=== PATIENT | male | born 1970 | race Caucasian/White ===

== ENCOUNTER → 2016-10-06 | Outpatient (REF) | payer OTHER ==
[~2016-10-06] MED LIST: /MOXI40TA; BACT800T; COMBIVIR OR; FIOR1CAP PO; IMIT50TA PO; KAYEXALATE; KEFL500C7 PO; NYSTATIN ORAL; PRED20TA; PROV90AE; SENN8.6T5; TEGR100C OR; TRAZ100T OR; TRIU1TAB PO; [UNRECOGNIZED DRUG - CODE] OR
[2016-10-09 00:08] LABS: %CD3+CD4+CD8+ 1.9 % (Not Estab.); %CD3+CD4+CD8- 34.8 % (Not Estab.); %CD3+CD4-CD8+ 33.9 % (Not Estab.); %CD3+CD4-CD8- 2.7 % (Not Estab.); ABS CD3+CD4+CD8+ 44 /uL (Not Estab.); ABS CD3+CD4+CD8- 800 /uL (Not Estab.); ABS CD3+CD4-CD8+ 780 /uL (Not Estab.); ABS CD3+CD4-CD8- 62 /uL (Not Estab.); CD4/CD8 NYSDOH RATIO 1.03 (Not Estab.); Eosinophils 2 % (.); HCT 50.4 % (37.5-51.0); HGB 17.3 g/dL (12.6-17.7); Monocytes 9 % (.); Neutrophils 61 % (.); WBC 8.2 x10E3/uL (3.4-10.8)
== END ==
LOC: M SFHCPLAZ 11:01
PROVIDERS: ATTEND Internal Medicine Infectious Disease
DX: B20 Human immunodeficiency virus [HIV] disease (principal)

== ENCOUNTER → 2016-10-28 | Outpatient (CLI) | payer OTHER ==
--- NOTE | 2016-11-06 00:36 | ECWPNPC ---
PATIENT NAME: NKECHI MCADAMS : 1970 GENDER: MALE VISIT DATE: 10/28/2016 DISCHARGE DATE: 10/28/16 1448 VISIT LOCKED DATE TIME: PHYSICIAN: NAA CARO RESOURCE: ANA CARO REASON FOR APPOINTMENT 1. NECK/BACK HISTORY OF PRESENT ILLNESS GENERAL: 46 Y/O MALE REFERED BY DR. 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 MARTINS.USING TRAMADOL 50MG 1-2 TAB UP TO 6 TABLETS PER DAY AND THIS IS NOT HELPFUL.USING FLEXERIL 10MG AM AND PM WITHOUT IMPROVEMENT.USING GABAPENTIN 300MG AM AND PM FOR TWO WEEKS WITHOUT IMPROVEMENT.PAIN IS AGGREVATED BY HEAVY LIFTING OR TWISTING. NEW PATIENT CONSULT: WHEN DID YOUR PAIN FIRST START? . BRIEFLY DESCRIBE HOW YOUR PAIN STARTED? . HOW DOES YOUR PAIN CHANGE WITH TIME? . DOES YOUR PAIN AWAKEN YOU FROM SLEEP? . HOW MANY HOURS OF SLEEP DO YOU NORMALLY GET? . ANY DIAGNOSTIC TESTING? . FACILITY WHERE TESTS WERE DONE? ____. PAIN TREATMENT TREATMENT YES CANCER HAVE YOU EVER HAD ANY TYPE OF CANCER?NO NO. PAIN SCREENING: PATIENT HAS A COMPLAINT OF ACUTE OR CHRONIC PAIN YES FALL RISK SCREENING: SCREENING :NO FALLS IN THE PAST YEAR LEMUS INVENTORY: QUESTIONNAIRE ASSESSEDTBD SCORE VALUE CALCULATED TBD CURRENT MEDICATIONS TAKING LIPITOR 40 MG TABLET 1 TABLET ORALLY ONCE A DAY TAKING MULTIVITAL HOOPA 1 TABLET DIRECTED ORALLY DAILY TAKING ALBUTEROL 90 MCG/ACT AEROSOL SOLUTION 2 PUFF INHALATION QID/PRN SOB OR WHEEZING TAKING GABAPENTIN 300 MG CAPSULE 1 CAPSULE ORALLY THREE TIMES A DAY TAKING CYCLOBENZAPRINE HCL 10 MG TABLET 1 TABLET ORALLY BID PRN TAKING TRIUMEQ 1 TABLET DIRECTED ORALLY DAILY TAKING TRAZODONE 150 150MG TABLET 2 TAB(S) ORALLY BEFORE BEDTIME TAKING TRAMADOL HCL 50 MG TABLET 2 TABLET NEEDED ORALLY BID NOT-TAKING SUMATRIPTAN SUCCINATE 100 MG TABLET 1/2-1 TABLET NEEDED ONE TIME ORALLY ONCE A DAY MEDICATION LIST REVIEWED AND RECONCILED WITH THE PATIENT PAST MEDICAL HISTORY AIDS GENOTYPE SENSITIVE 10/2009 CHRONIC KIDNEY DISEASE STAGE [address] ANN INSOMNIA PTSD PNEUMOCYSTIS PNEUMONIA DENTAL CAVITIES MRI 12/04/2011 DDD BULGE L4-5 L5-S1 07/2012 EXCISION OF SCC CA LEFT GROIN LESION HLAB 5701 NEGATIVE 2011 SLEEP [facility] CANNOT TOLERATE MASK MILD HEARING LOSS [facility]UDIOLOGY CENTER FOR SIGHT ASTIGMATISM/GLAUCOMA SUSPECT DR JULIAN CHRONIC MIGRAINE WITHOUT AURA, WITHOUT MENTION OF INTRACTABLE MIGRAINE WITH STATUS MIGRAINOSUS LEFT INDEX FINGER CUT 05/2015 ALLERGIES N.K.D.A. SURGICAL HISTORY HERNIA REPAIR 1981 TEETH EXTRACTED FAMILY HISTORY FATHER: 57 YRS, KIDNEY DISEASE CHF KIDNEY DISEASE CHF MOTHER: ALIVE SIBLINGS: ALIVE, 2 SISTERS 2 SISTERS SON(S): ALIVE, 3 SONS 3 SONS PATERNAL GRAND FATHER: , CHF CHF PATERNAL GRAND MOTHER: MATERNAL GRAND FATHER: , CHF CHF MATERNAL GRAND MOTHER: 1 SON(S) - HEALTHY. . SOCIAL HISTORY GENERAL: TOBACCO USE ARE YOU A:NONSMOKER ARE YOU A:CURRENT SMOKER HOW MANY CIGARETTES A DAY DO YOU SMOKE?11-20 HOW SOON AFTER YOU WAKE UP DO YOU SMOKE YOUR FIRST CIGARETTE?31-60 MIN HOW OFTEN DO YOU SMOKE CIGARETTES?EVERY DAY PATIENT COUNSELED ON THE DANGERS OF TOBACCO USE AND URGED TO QUIT:10/06/2016 ARE YOU INTERESTED IN QUITTING?NOT READY TO QUIT COUNSELED THE PATIENT ON SMOKING EFFECTS, EDUCATION [id number]/16/2017 SMOKING CESSATION INFORMATION GIVEN10/06/2016 PAIN CLINIC PFS, CLERGY, PUBLIC HEALTH REFERRALS CLERGY REFERRAL NEEDED?NO WAS THE PROVIDER NOTIFIED OF ANY PERTINENT INFO?NO PFS REFERRAL NEEDED?NO PUBLIC HEALTH REFERRAL NEEDED?NO PSYCHOLOGICAL HX TREATMENTNO ALCOHOL OR DRUG TREATMENTNO PATIENT: ____. ADVANCED DIRECTIVES HEALTH CARE PROXY?NO POWER OF WEIGHER PRODUCTION?NO SCREENING/ASSESSMENT TOOL NUTRITION ASSESSEDYES ARE YOU ON ANY SPECIAL DIET?NO ANY SIGNIFICANT CHANGES RELATED TO EATING, WEIGHT GAIN/LOSS, OR BOWEL HABITS?NO IF YES, IS YOUR PRIMARY CARE PROVIDER AWARE OF THIS?NO SPECIAL NEEDS LEVEL OF CARE? SELF, GLASSES: NO, CONTACTS: NO, HEARING AIDS: NO, DENTURES: NO, WALKER: NO, CANE: NO, WHEELCHAIR: NO, REFERRALS NEEDED: NO. 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 DIET: REGULAR. EXERCISE: RESISTANCE TRAINING. MARITAL STATUS: .. OTHERS AT HOME: CHILDREN,, OTHER NON-RELATIVE. PETS: DOG. ORTHODOXY: NO RESTORATIONISM BELIEFS THAT WOULD IMPACT HEALTH CARE. LANGUAGE: LAO. EDUCATION: HIGH SCHOOL GRAD. LEARNING BARRIERS / SPECIAL NEEDS BARRIERS TO LEARNING?NO HEARING IMPAIRED?NO VISION IMPAIRED?NO COGNITIVELY IMPAIRED?NO READINESS TO LEARN?YES LEARNING PREFERENCES?NO LEARNING CAPABILITIES PRESENT?YES EMOTIONAL BARRIERS?NO MALE 6 MONTH RISK ASSESSMENT FOR STD DESCRIBE YOUR SEXUAL PARTNERS:WOMEN MONOGOMOUS?YES HIV POSITIVE?YES EVER INJECT DRUGS?NO VAGINAL SEX?YES WITH CONDOMS?SOMETIMES ANAL SEX?NO ORAL SEX?NO WHAT STEPS HAVE YOU TAKEN TO PROTECT YOURSELF FROM STDS, INCLUDING HIV? (CHECK ALL THAT APPLY):MUTUAL MONOGAMY, MALE CONDOMS HAVE YOU OR ANY OF YOUR SEXUAL PARTNERS EVER HAD AN STD? IF YES PLEASE LIST:NO IS THERE ANYTHING ELSE WE SHOULD TALK ABOUT CONCERNING YOUR SEXUAL HISTORY OR PRACTICE?NO HOUSING: OWNS HOME. HOSPITALIZATION/MAJOR DIAGNOSTIC PROCEDURE HERNIA REPAIR AT [facility] 1981 PNEUMONIA AT [facility] 2009 URNS 14 5 RIGHT SIDE 2015 REVIEW OF SYSTEMS CONSTITUTIONAL: RECENT ILLNESS DENIES . ANY CHANGE IN YOUR MEDICAL CONDITION? NO . CHILLS NO . FEVER NO, DENIES . WEIGHT LOSS DENIES . INFECTION: DO YOU HAVE NEW INFECTIONS? NO . DO YOU HAVE HISTORY OF MRSA? NO . MUSCULOSKELETAL: ANY NEW PATTERNS OF PAIN OR NUMBNESS? NO . SYTEMIC LUPUS NO . JOINT PAIN DENIES . JOINT STIFFNESS DENIES . GASTROENTEROLOGY: BOWEL INCONTINENCE DENIES . ANY NEW CHANGE IN BOWEL CONTROL? NO . BARRETTS ESOPHAGUS NO . CIRRHOSIS NO . HEPATITIS NO . LIVER FAILURE NO . ACID REFLUX NO . BLOOD IN STOOL DENIES . UNEXPLAINED WEIGHT LOSS NO . GENITOURINARY: ANY NEW CHANGE IN BLADDER CONTROL? NO . IS THERE A CHANCE YOU COULD BE ? NO . HEMATOLOGY/LYMPH: DENIES . BLEEDING DISORDER DENIES . DO YOU TAKE ANY BLOOD THINNERS? (FOR EXAMPLE- COUMADIN, PLAVIX, AGGRENOX, PLATEL, PRADAXA, OR XARELTO) NO . WHEN WAS YOUR LAST DOSE? DATE: TIME: . LOW PLATELET COUNT NO . SICKLE CELL DISEASE NO . VON WILLIEBRANDS NO . FACTOR V LEIDEN NO . THALLASEMIA NO . ANEMIA NO . EASY BRUISING NO . NEUROLOGY: HAVE YOU FALLEN IN THE PAST 6 MONTHS? NO . ANY NEW EXTREMITY NUMBNESS OR WEAKNESS? NO . HEAD INJURY NO . DEMENTIA NO . CEREBRAL PALSY NO . MULTIPLE SCLEROSIS NO . DIZZINESS NO . HEADACHE NO, DENIES . SEIZURES DENIES . STROKES NO . VERTIGO NO . CARDIOLOGY: DO YOU HAVE A PACEMAKER OR DEFIBRILLATOR? NO . ANGINA NO . HEART ATTACK NO . HEART SURGERY NO . CONGESTIVE HEART FAILURE/FLUID OVERLOAD NO . CHEST PAIN NO, DENIES . HIGH BLOOD PRESSURE NO . IRREGULAR HEART BEAT NO . SHORTNESS OF BREATH DENIES . RESPIRATORY: HAVE YOU BEEN SICK IN THE PAST WEEK? NO . FEVER NO . FLU LIKE SYMPTOMS? NO . CPAP NO . BYPAP NO . ASTHMA NO . EMPHYSEMA NO . CHRONIC LUNG DISEASES NO . SHORTNESS OF BREATH ON EXERTION NO . DO YOU USE ANY TYPE OF TOBACCO (SMOKE, SMOKELESS, CHEW)? NO . COUGH NO, DENIES . SHORTNESS OF BREATH DENIES . SNORING NO . INTEGUMENTARY: DO YOU HAVE ANY RASHES OR OPEN SORES? NO . ALLERGIC/IMMUNO: ARE YOU ALLERGIC TO SHELLFISH OR IV DYE? NO . ANY NEW ALLERGIES? NO . PSYCHIATRIC: DO YOU HAVE THOUGHTS OF HURTING YOURSELF OR SOMEONE ELSE? NO . ARE YOU ABUSED, NEGLECTED, OR IN AN UNSAFE ENVIRONMENT? NO . ENDOCRINOLOGY: THYROID DISEASE DENIES . ARE YOU DIABETIC? NO . DIABETES DENIES . THYROID DISORDER NO . OTHER: DO YOU NEED ANY PRESCRIPTIONS? NO . IF YES, PLEASE LIST: ____ . ANY NEW PROBLEMS WITH YOUR MEDICATIONS? NO . WHEN DID YOU LAST EAT? ____ . WHEN DID YOU LAST DRINK? ____ . WHAT DID YOU LAST DRINK? ____ . NAME OF PERSON DRIVING YOU HOME? ____ . DO YOU HAVE ANY OTHER QUESTIONS OR CONCERNS NO . HEENT: CHANGE IN VISION DENIES . LOSS OF HEARING DENIES . TROUBLE SWALLOWING DENIES . PSYCHOLOGY: ANXIETY DENIES . DEPRESSION DENIES . UROLOGY: URINARY INCONTINENCE DENIES . BLOOD IN URINE DENIES . REVIEWED BY: PROVIDER: ANA KANG . VITAL SIGNS WT 174.2 LBS, HT 68 IN, BMI 26.48 INDEX, BP 130/80 MM HG, HR 77 /MIN, RR 16 /MIN, TEMP 97.3 F, OXYGEN SAT % 98, NA INITIALS TL 1321, REVIEWED BY: KG. EXAMINATION GENERAL EXAMINATION: HEENT:HEAD:, NORMOCEPHALIC, EYES:, EYES NORMAL, NOSE:, NOSE CLEAR, THROAT: NORMAL. LUNGS:LUNG SOUNDS ARE CLEAR. HEART:HEART RATE REGULAR. ABDOMEN:SOFT AND NOT TENDER, NON-DISTENDED. MUSCULOSKELETAL:*. LUMBAR SACRAL SPINEMUSCLE STRENGTH TESTING 5/5 BILATERAL LOWER EXTREMITIES. PALPATION: + FOR PAIN OVER L/S SPINE. + FOR PAIN OVER L/S PARASPINALS.HYPERSENSITIVE TO LIGHT TOUCH OVER LUMBAR PARASPINALS AND THORACIC PARASPINALS., TRIGGER POINTS:NOTED BILATERAL LUMBAR PARASPINALS.. THORACIC SPINENEGATIVE FOR PAIN WITH PALPATION OF THORACIC SPINE. NEGATIVE FOR PAIN WITH PALPATION OF THORACIC PARASPINAL. CERVICALNEGATIVE FOR PAIN WITH PALPATION OF CERVICAL SPINE. NEGATIVE FOR PAIN WITH PALPATION OF CERVICAL PARASPINALS. NEGATIVE FOR PAIN WITH PALPATION OF TRAPEZIUS BILAT. SKIN:NORMAL, NO RASH. NEUROLOGIC EXAM:ALERT AND ORIENTED X 3, DTRS 1-2+ IN ALL 4 EXTREMITIES, DENIES UPPER EXTREMETIES SENSORY LOSS, DENIES LOWER EXTREMETIES SENSORY LOSS. DIAGNOSTIC:MRI L/S [id number]. 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 PREVENTIVE MEDICINE PAIN CLINIC TEACHING: MEDICATIONS SOMA EDUCATION PROVIDED/ PT INSTRUCTED TO STOP FLEXERIL. PROCEDURE TEACHING WENT OVER PROCEDURE INSTRUCTIONS WITH PT AND GIRLFRIEND.. PROCEDURE CODES FA211 ESTABILISHED PATIENT [facility] CHARGE DISPOSITION & COMMUNICATION FOLLOW UP 2 WEEKS POST PROC. (REASON: TPI LOW BACK) ELECTRONICALLY SIGNED BY PEARL ACEVEDO ON 11/04/2016 AT 04:57 PM EST DISCLAIMER : THIS IS A VISIT SUMMARY EXTRACTED FROM THE [employer] CHART. IT IS NOT A COPY OF THE [employer] PROGRESS NOTE. VIMALD
== END ==
LOC: M PAIN 13:20
PROVIDERS: ATTEND Nurse Practitioner Family
DX: M79.1 Myalgia (principal); M47.896 Other spondylosis, lumbar region; M54.6 Pain in thoracic spine; M50.30 Other cervical disc degeneration, unspecified cervical region; M54.5 Low back pain; G89.29 Other chronic pain; Z79.891 Long term (current) use of opiate analgesic; Z79.899 Other long term (current) drug therapy; F43.10 Post-traumatic stress disorder, unspecified; N18.3 Chronic kidney disease, stage 3 (moderate); F17.210 Nicotine dependence, cigarettes, uncomplicated

== ENCOUNTER → 2016-11-04 | Outpatient (CLI) | payer OTHER ==
[~2016-11-04] MED LIST changes: +BUPIVACAINE HCL 0.25% 10 ML VIAL As Ordered ONE; +BUPIVACAINE HCL 0.25% 30 ML VIAL As Ordered ONE; +TRIAMCINOLONE ACETONIDE SUSP 40 MG/ML VIAL (J3301) As Ordered ONE; +diazePAM 5 MG TAB As Ordered ONE; +oxyCODONE 5MG TAB As Ordered ONE
--- NOTE | 2016-11-08 23:25 | ECWPNPC ---
PATIENT NAME: NKECHI MCADAMS : 1970 GENDER: MALE VISIT DATE: 11/04/2016 DISCHARGE DATE: 11/04/16 1107 VISIT LOCKED DATE TIME: PHYSICIAN: PUJA CHILDRESS RESOURCE: PUJA CHILDRESS REASON FOR APPOINTMENT 1. TRIGGER POINT INJECTION HISTORY OF PRESENT ILLNESS HISTORY OF PRESENT ILLNESS: PAIN THE PATIENT DESCRIBES THE PAIN... FALL RISK SCREENING: SCREENING :NO FALLS IN THE PAST YEAR CURRENT MEDICATIONS TAKING LIPITOR 40 MG TABLET 1 TABLET ORALLY ONCE A DAY, NOTES: 11/04/16729 TAKING MULTIVITAL HO-CHUNK 1 TABLET DIRECTED ORALLY DAILY, NOTES: 11/04/16729 TAKING ALBUTEROL 90 MCG/ACT AEROSOL SOLUTION 2 PUFF INHALATION QID/PRN SOB OR WHEEZING, NOTES: 3 WEEKS AGO TAKING TRIUMEQ 1 TABLET DIRECTED ORALLY DAILY, NOTES: 11/04/16729 TAKING TRAZODONE 150 150MG TABLET 1TAB(S) ORALLY BID, NOTES: 11/04/16729 TAKING SOMA 350 MG TABLET 1 TABLET NEEDED ORALLY Q8H MDD3, NOTES: HASN'T GOTTEN PREAPPROVAL YET TAKING GABAPENTIN 300 MG CAPSULE 1 CAPSULE ORALLY THREE TIMES A DAY, NOTES: 11/04/16729 TAKING TRAMADOL HCL 50 MG TABLET 2 TABLET NEEDED ORALLY BID, NOTES: 11/03/16 230 TAKING CYCLOBENZAPRINE HCL 10 MG TABLET 1 TABLET ORALLY BID PRN, NOTES: 11/04/16729 NOT-TAKING SUMATRIPTAN SUCCINATE 100 MG TABLET 1/2-1 TABLET NEEDED ONE TIME ORALLY ONCE A DAY MEDICATION LIST REVIEWED AND RECONCILED WITH THE PATIENT PAST MEDICAL HISTORY AIDS GENOTYPE SENSITIVE 10/2009 CHRONIC KIDNEY DISEASE STAGE [address] ANN INSOMNIA PTSD PNEUMOCYSTIS PNEUMONIA DENTAL CAVITIES MRI 12/04/2011 DDD BULGE L4-5 L5-S1 07/2012 EXCISION OF SCC CA LEFT GROIN LESION HLAB 5701 NEGATIVE 2011 SLEEP [facility] CANNOT TOLERATE MASK MILD HEARING LOSS AUDIOLOGY CENTER FOR SIGHT ASTIGMATISM/GLAUCOMA SUSPECT DR JULIAN CHRONIC MIGRAINE WITHOUT AURA, WITHOUT MENTION OF INTRACTABLE MIGRAINE WITH STATUS MIGRAINOSUS LEFT INDEX FINGER CUT 05/2015 ALLERGIES N.K.D.A. SOCIAL HISTORY GENERAL: TOBACCO USE ARE YOU A:CURRENT SMOKER HOW MANY CIGARETTES A DAY DO YOU SMOKE?11-20 HOW SOON AFTER YOU WAKE UP DO YOU SMOKE YOUR FIRST CIGARETTE?WITHIN 5 MIN PATIENT COUNSELED ON THE DANGERS OF TOBACCO USE AND URGED TO QUIT: COUNCELED ON THE IMPORTANCE OF QUITTING. ARE YOU INTERESTED IN QUITTING?NOT READY TO QUIT ADDITIONAL FINDINGS: TOBACCO USERCHEWS TOBACCO LEARNING BARRIERS / SPECIAL NEEDS ORIENTED TO PLAN OF CARE: PATIENT, PAIN MANAGEMENT PATIENT, ORIENTED TO PLAN OF CARE: PATIENT, PAIN MANAGEMENT PATIENT. NEW PATIENT PAIN DIARY TODAY'S VISITNOTES FROM 0-10, WHAT LEVEL IS YOUR PAIN TODAY?0 PAIN CLINIC PFS, CLERGY, PUBLIC HEALTH REFERRALS PFS REFERRAL NEEDED?NO CLERGY REFERRAL NEEDED?NO PUBLIC HEALTH REFERRAL NEEDED?NO WAS THE PROVIDER NOTIFIED OF ANY PERTINENT INFO?NO PFS REFERRAL NEEDED?NO CLERGY REFERRAL NEEDED?NO PUBLIC HEALTH REFERRAL NEEDED?NO WAS THE PROVIDER NOTIFIED OF ANY PERTINENT INFO?NO REVIEW OF SYSTEMS CONSTITUTIONAL: ANY CHANGE IN YOUR MEDICAL CONDITION? NO . CHILLS NO . FEVER NO . INFECTION: DO YOU HAVE NEW INFECTIONS? NO . DO YOU HAVE HISTORY OF MRSA? NO . MUSCULOSKELETAL: ANY NEW PATTERNS OF PAIN OR NUMBNESS? NO . GASTROENTEROLOGY: ANY NEW CHANGE IN BOWEL CONTROL? NO . GENITOURINARY: ANY NEW CHANGE IN BLADDER CONTROL? NO . IS THERE A CHANCE YOU COULD BE ? NO . HEMATOLOGY/LYMPH: DO YOU TAKE ANY BLOOD THINNERS? (FOR EXAMPLE- COUMADIN, PLAVIX, AGGRENOX, PLATEL, PRADAXA, OR XARELTO) NO . WHEN WAS YOUR LAST DOSE? DATE: TIME: . NEUROLOGY: HAVE YOU FALLEN IN THE PAST 6 MONTHS? YES, EARLY MAY.- REAGGREVATED HIS BACK . ANY NEW EXTREMITY NUMBNESS OR WEAKNESS? NO . CARDIOLOGY: DO YOU HAVE A PACEMAKER OR DEFIBRILLATOR? NO . RESPIRATORY: HAVE YOU BEEN SICK IN THE PAST WEEK? NO . FEVER NO . FLU LIKE SYMPTOMS? NO . COUGH NO . INTEGUMENTARY: DO YOU HAVE ANY RASHES OR OPEN SORES? NO . ALLERGIC/IMMUNO: ARE YOU ALLERGIC TO SHELLFISH OR IV DYE? NO . ANY NEW ALLERGIES? NO . PSYCHIATRIC: DO YOU HAVE THOUGHTS OF HURTING YOURSELF OR SOMEONE ELSE? YES, RECEIVING COUNCELING AT [facility] FOR PTSD AND PSYCH DISORDERS . ARE YOU ABUSED, NEGLECTED, OR IN AN UNSAFE ENVIRONMENT? NO . ENDOCRINOLOGY: ARE YOU DIABETIC? NO . OTHER: DO YOU NEED ANY PRESCRIPTIONS? NO . IF YES, PLEASE LIST: ____ . ANY NEW PROBLEMS WITH YOUR MEDICATIONS? NO . WHEN DID YOU LAST EAT? ____11/03/16 1700 . WHEN DID YOU LAST DRINK? ____11/04/16 0745 . WHAT DID YOU LAST DRINK? SWEETENED ICE TEA . NAME OF PERSON DRIVING YOU HOME? ____BLANCACULLEN . DO YOU HAVE ANY OTHER QUESTIONS OR CONCERNS YES WAITING FOR APPROVAL FOR SOMA . REVIEWED BY: PROVIDER: . VITAL SIGNS WT 176.4 LBS, HT 68 IN, BMI 26.82 INDEX, BP 132/84 MM HG, HR 97 /MIN, RR 16 /MIN, TEMP 96.8 F, OXYGEN SAT % 98, REVIEWED BY: AD. ASSESSMENTS MYALGIA - M79.1 (PRIMARY) PROCEDURES PN TRIGGER POINT INJECTION WITH STEROIDS PRE PROCEDURE DIAGNOSIS 1. MYALGIA 2. PAIN AT BILATERAL LOWER BACK AREA POST PROCEDURE DIAGNOSIS 1. MYALGIA 2. PAIN AT BILATERAL LOWER BACK AREA PROCEDURE TRIGGER POINT INJECTION AT BILATERAL LOWER BACK AREA SURGEON DR. PUJA CHILDRESS FOCUS PULLER NONE ANESTHESIA LOCAL PRE PROCEDURE NOTE THE PATIENT HAS A HISTORY OF CHRONIC PAIN AT THE RIGHT AND LEFT LOW BACK AREA. I EVALUATE THE PATIENT AND REVIEWED THE CHART. THERE IS EVIDENCE OF BANDS OF TISSUE WITH RESTRICTION OF MOVEMENT AND PRESENCE OF TRIGGER POINT AT THE AFFECTED AREA. I WENT OVER THE RISKS, ALTERNATIVES, AND BENEFITS ASSOCIATED WITH THIS PROCEDURE. THE PATIENT WOULD LIKE TO PROCEED AND GIVE CONSENT TO PERFORMED THE PROCEDURE. THE PATIENT DENIES UNEXPLAINABLE WEIGHT LOSS, FEVER, CHILLS, OR NEW CHANGES IN URINARY OR BOWEL CONTROL DESCRIPTION OF PROCEDURE THE PATIENT WAS BROUGHT TO THE PROCEDURE ROOM AND PLACED IN THE SITTING POSITION. THE AREA WAS CLEANED WITH ALCOHOL. THE PROCEDURE WAS DONE USING ASEPTIC STERILE TECHNIQUE. I CHECKED LATERALITY AND THE LEVEL WHERE THE PROCEDURE WAS GOING TO BE PERFORMED WITH THE PATIENT AND THE SUPPORTING STAFF AT THE MOMENT OF THE TIME OUT IN THE PROCEDURE ROOM. USING A 25-GAUGE NEEDLE, TRIGGER POINTS WERE INJECTED AT THE RIGHT AND LEFT LOW BACK AREA WITH A TOTAL OF 40 ML OF BUPIVACAINE 0.25% AND KENALOG 40 MG. THERE WAS NO EVIDENCE OF BLOOD, PARESTHESIA OR CEREBROSPINAL FLUID DURING THE PROCEDURE. THE PATIENT WAS SENT TO THE RECOVERY ROOM. THE PATIENT WAS MOVING THE EXTREMITIES AND DOING WELL. THERE WAS NO COMPLICATION DURING THE PROCEDURE POST PROCEDURE NOTE THE PATIENT WILL BE SEEN IN A FOLLOW UP IN THE NEXT FEW WEEKS. INSTRUCTIONS WERE GIVEN, QUESTIONS WERE ANSWERED, AND THE PATIENT EXPRESSED UNDERSTANDING AND AGREES WITH THE PLAN. INSTRUCTIONS WERE GIVEN, QUESTIONS WERE ANSWERED, PATIENT REPORTS UNDERSTANDING AND AGREES WITH THE PLAN. I, SPENSER SOLER, DOCUMENTED THE ABOVE INFORMATION ACTING A SCRIBE FOR DR. CHILDRESS. I HAVE REVIEWED THE ABOVE DOCUMENT, WRITTEN BY SPENSER SOLER SCRIBE AND I VERIFY THAT IT IS ACCURATE. PROCEDURE CODES 06345 INJ TRIGGER POINT / MUSCL DISPOSITION & COMMUNICATION FOLLOW UP 3 WEEKS ELECTRONICALLY SIGNED BY PUJA CHILDRESS MD ON 11/08/2016 AT 09:18 PM EST DISCLAIMER : THIS IS A VISIT SUMMARY EXTRACTED FROM THE [employer] CHART. IT IS NOT A COPY OF THE [employer] PROGRESS NOTE. HAETHER
== END ==
LOC: M PAIN 09:00
PROVIDERS: ATTEND Anesthesiology
DX: G89.29 Other chronic pain (principal); M54.5 Low back pain; M51.36 Other intervertebral disc degeneration, lumbar region; B20 Human immunodeficiency virus [HIV] disease; N18.3 Chronic kidney disease, stage 3 (moderate); F43.10 Post-traumatic stress disorder, unspecified; M50.30 Other cervical disc degeneration, unspecified cervical region; E78.1 Pure hyperglyceridemia; G43.119 Migraine with aura, intractable, without status migrainosus; I95.1 Orthostatic hypotension; Z79.899 Other long term (current) drug therapy; Z79.891 Long term (current) use of opiate analgesic; F17.210 Nicotine dependence, cigarettes, uncomplicated
CPT/HCPCS: 20552; J3301

== ENCOUNTER → 2016-11-25 | Outpatient (CLI) | payer OTHER ==
[~2016-11-25] MED LIST changes: -BUPIVACAINE HCL 0.25% 10 ML VIAL As Ordered ONE; -BUPIVACAINE HCL 0.25% 30 ML VIAL As Ordered ONE; -TRIAMCINOLONE ACETONIDE SUSP 40 MG/ML VIAL (J3301) As Ordered ONE; -diazePAM 5 MG TAB As Ordered ONE; -oxyCODONE 5MG TAB As Ordered ONE
--- NOTE | 2016-11-27 00:17 | ECWPNPC ---
PATIENT NAME: NKECHI MCADAMS : 1970 GENDER: MALE VISIT DATE: 11/25/2016 DISCHARGE DATE: 11/25/16 1041 VISIT LOCKED DATE TIME: PHYSICIAN: ANA CARO RESOURCE: ANA CARO REASON FOR APPOINTMENT 1. POST TPI INJ HISTORY OF PRESENT ILLNESS HISTORY OF PRESENT ILLNESS: HERE FOR POST PROCEDURE F/U.HAD TPI ON 11-04-16 TO LOW BACK.REPORTS NO IMPROVEMENT IN PAIN POST PROCEDURE.RATING PAIN VAS 8/10.DENIES RADICULAR SYMPTOMS.REPORTS CURRENT MEDICATION INEFFECTIVE AT REDUCING PAIN.ADMITS TO SMOKING MARIJUANA WHICH HELPS TO REDUCE PAIN.HE IS CONSIDERING REFERRAL FOR MARIJUANA/MEDICAL. PAIN THE PATIENT DESCRIBES THE PAIN... FALL RISK SCREENING: SCREENING :NO FALLS IN THE PAST YEAR CURRENT MEDICATIONS TAKING LIPITOR 40 MG TABLET 1 TABLET ORALLY ONCE A DAY, NOTES: 11/04/16729 TAKING MULTIVITAL [place] 1 TABLET DIRECTED ORALLY DAILY, NOTES: 11/04/16729 TAKING ALBUTEROL 90 MCG/ACT AEROSOL SOLUTION 2 PUFF INHALATION QID/PRN SOB OR WHEEZING, NOTES: 3 WEEKS AGO TAKING TRIUMEQ 1 TABLET DIRECTED ORALLY DAILY, NOTES: 11/04/16729 TAKING TRAZODONE 150 150MG TABLET 1TAB(S) ORALLY BID, NOTES: 11/04/16729 TAKING TRAMADOL HCL 50 MG TABLET 2 TABLET NEEDED ORALLY BID, NOTES: 11/03/16 230 TAKING GABAPENTIN 300 MG CAPSULE 1 CAPSULE ORALLY THREE TIMES A DAY, NOTES: 11/04/16729 TAKING CYCLOBENZAPRINE HCL 10 MG TABLET 1 TABLET ORALLY BID PRN, NOTES: 11/04/16729 TAKING SOMA 350 MG TABLET 1 TABLET NEEDED ORALLY THREE TIMES DAILY TAKING TIZANIDINE HCL 4 MG TABLET 1 TABLET NEEDED ORALLY THREE TIMES A DAY NOT-TAKING SOMA 350 MG TABLET 1 TABLET NEEDED ORALLY Q8H MDD3, NOTES: HASN'T GOTTEN PREAPPROVAL YET NOT-TAKING SUMATRIPTAN SUCCINATE 100 MG TABLET 1/2-1 TABLET NEEDED ONE TIME ORALLY ONCE A DAY MEDICATION LIST REVIEWED AND RECONCILED WITH THE PATIENT PAST MEDICAL HISTORY AIDS GENOTYPE SENSITIVE 10/2009 CHRONIC KIDNEY DISEASE STAGE [address] ANN INSOMNIA PTSD PNEUMOCYSTIS PNEUMONIA DENTAL CAVITIES MRI 12/04/2011 DDD BULGE L4-5 L5-S1 07/2012 EXCISION OF SCC CA LEFT GROIN LESION HLAB 5701 NEGATIVE 2011 SLEEP APNEA CANNOT TOLERATE MASK MILD [facility]/GLAUCOMA SUSPECT DR JULIAN CHRONIC MIGRAINE WITHOUT AURA, WITHOUT MENTION OF INTRACTABLE MIGRAINE WITH STATUS MIGRAINOSUS LEFT INDEX FINGER CUT 05/2015 ALLERGIES N.K.D.A. SOCIAL HISTORY GENERAL: TOBACCO USE ARE YOU A:NONSMOKER ARE YOU A:CURRENT SMOKER PATIENT COUNSELED ON THE DANGERS OF TOBACCO USE AND URGED TO QUIT:11/25/2016 ARE YOU INTERESTED IN QUITTING?NOT READY TO QUIT COUNSELED THE PATIENT ON SMOKING EFFECTS, EDUCATION [id number]/07/2017 LEARNING BARRIERS / SPECIAL NEEDS ORIENTED TO PLAN OF CARE: PATIENT, PAIN MANAGEMENT PATIENT, ORIENTED TO PLAN OF CARE: PATIENT, PAIN MANAGEMENT PATIENT, ORIENTED TO PLAN OF CARE: PATIENT, PAIN MANAGEMENT PATIENT. NEW PATIENT PAIN DIARY TODAY'S VISITNOTES FROM 0-10, WHAT LEVEL IS YOUR PAIN TODAY?0 PAIN CLINIC PFS, CLERGY, PUBLIC HEALTH REFERRALS PFS REFERRAL NEEDED?NO CLERGY REFERRAL NEEDED?NO PUBLIC HEALTH REFERRAL NEEDED?NO WAS THE PROVIDER NOTIFIED OF ANY PERTINENT INFO?NO PFS REFERRAL NEEDED?NO CLERGY REFERRAL NEEDED?NO PUBLIC HEALTH REFERRAL NEEDED?NO WAS THE PROVIDER NOTIFIED OF ANY PERTINENT INFO?NO PFS REFERRAL NEEDED?NO CLERGY REFERRAL NEEDED?NO PUBLIC HEALTH REFERRAL NEEDED?NO WAS THE PROVIDER NOTIFIED OF ANY PERTINENT INFO?NO REVIEW OF SYSTEMS CONSTITUTIONAL: ANY CHANGE IN YOUR MEDICAL CONDITION? NO . CHILLS NO . FEVER NO . INFECTION: DO YOU HAVE NEW INFECTIONS? NO . DO YOU HAVE HISTORY OF MRSA? NO . MUSCULOSKELETAL: ANY NEW PATTERNS OF PAIN OR NUMBNESS? NO . GASTROENTEROLOGY: ANY NEW CHANGE IN BOWEL CONTROL? NO . GENITOURINARY: ANY NEW CHANGE IN BLADDER CONTROL? NO . IS THERE A CHANCE YOU COULD BE ? NO . HEMATOLOGY/LYMPH: DO YOU TAKE ANY BLOOD THINNERS? (FOR EXAMPLE- COUMADIN, PLAVIX, AGGRENOX, PLATEL, PRADAXA, OR XARELTO) NO . WHEN WAS YOUR LAST DOSE? DATE: TIME: . NEUROLOGY: HAVE YOU FALLEN IN THE PAST 6 MONTHS? NO . ANY NEW EXTREMITY NUMBNESS OR WEAKNESS? NO . CARDIOLOGY: DO YOU HAVE A PACEMAKER OR DEFIBRILLATOR? NO . RESPIRATORY: HAVE YOU BEEN SICK IN THE PAST WEEK? NO . FEVER NO . FLU LIKE SYMPTOMS? NO . COUGH NO . INTEGUMENTARY: DO YOU HAVE ANY RASHES OR OPEN SORES? NO . ALLERGIC/IMMUNO: ARE YOU ALLERGIC TO SHELLFISH OR IV DYE? NO . ANY NEW ALLERGIES? NO . PSYCHIATRIC: DO YOU HAVE THOUGHTS OF HURTING YOURSELF OR SOMEONE ELSE? NO . ARE YOU ABUSED, NEGLECTED, OR IN AN UNSAFE ENVIRONMENT? NO . ENDOCRINOLOGY: ARE YOU DIABETIC? NO . OTHER: DO YOU NEED ANY PRESCRIPTIONS? NO . IF YES, PLEASE LIST: ____ . ANY NEW PROBLEMS WITH YOUR MEDICATIONS? NO . WHEN DID YOU LAST EAT? ____ . WHEN DID YOU LAST DRINK? ____ . WHAT DID YOU LAST DRINK? ____ . NAME OF PERSON DRIVING YOU HOME? ____ . DO YOU HAVE ANY OTHER QUESTIONS OR CONCERNS NO . REVIEWED BY: PROVIDER: ANA KANG . VITAL SIGNS WT 177.0 LBS, HT 68 IN, BMI 26.91 INDEX, BP 152/83 R ARM, REPEAT BP 140/100 L ARM, HR 85 /MIN, RR 16 /MIN, TEMP 96.0 F, OXYGEN SAT % 98, NA INITIALS TL 0957, REVIEWED BY: VD. EXAMINATION GENERAL EXAMINATION: HEENT:HEAD:, NORMOCEPHALIC, EYES:, EYES NORMAL, NOSE:, NOSE CLEAR, THROAT: NORMAL. LUNGS:LUNG SOUNDS ARE CLEAR. HEART:HEART RATE REGULAR. ABDOMEN:SOFT AND NOT TENDER, NON-DISTENDED. MUSCULOSKELETAL:*. LUMBAR SACRAL SPINEMUSCLE STRENGTH TESTING 5/5 BILATERAL LOWER EXTREMITIES. PALPATION: + FOR PAIN OVER L/S SPINE. + FOR PAIN OVER L/S PARASPINALS.HYPERSENSITIVE TO LIGHT TOUCH OVER LUMBAR PARASPINALS AND THORACIC PARASPINALS., TRIGGER POINTS:NOTED BILATERAL LUMBAR PARASPINALS.. THORACIC SPINENEGATIVE FOR PAIN WITH PALPATION OF THORACIC SPINE. NEGATIVE FOR PAIN WITH PALPATION OF THORACIC PARASPINAL. CERVICALNEGATIVE FOR PAIN WITH PALPATION OF CERVICAL SPINE. NEGATIVE FOR PAIN WITH PALPATION OF CERVICAL PARASPINALS. NEGATIVE FOR PAIN WITH PALPATION OF TRAPEZIUS BILAT. SKIN:NORMAL, NO RASH. NEUROLOGIC EXAM:ALERT AND ORIENTED X 3, DTRS 1-2+ IN ALL 4 EXTREMITIES, DENIES UPPER EXTREMETIES SENSORY LOSS, DENIES LOWER EXTREMETIES SENSORY LOSS. DIAGNOSTIC:MRI L/S [id number]. ASSESSMENTS MYALGIA - M79.1 (PRIMARY) PAIN IN THORACIC SPINE - M54.6 LOW BACK PAIN - M54.5 OTHER CHRONIC PAIN - G89.29 TREATMENT MYALGIA START CYMBALTA CAPSULE DELAYED RELEASE PARTICLES, 30 MG, 1 CAPSULE, ORALLY, DAILY, 30 DAY(S), 30 CAPSULE, REFILLS 2 PROCEDURE CODES FA211 ESTABILISHED PATIENT [facility] CHARGE DISPOSITION & COMMUNICATION FOLLOW UP 2 MONTHS ELECTRONICALLY SIGNED BY PEARL ACEVEDO ON 11/25/2016 AT 12:21 PM EST DISCLAIMER : THIS IS A VISIT SUMMARY EXTRACTED FROM THE [employer] CHART. IT IS NOT A COPY OF THE [employer] PROGRESS NOTE. MTDD
== END ==
LOC: M PAIN 10:00
PROVIDERS: ATTEND Nurse Practitioner Family
DX: Z09 Encounter for follow-up examination after completed treatment for conditions other than malignant neoplasm (principal); G89.29 Other chronic pain; M79.1 Myalgia; M54.5 Low back pain; F43.10 Post-traumatic stress disorder, unspecified; M51.36 Other intervertebral disc degeneration, lumbar region; B20 Human immunodeficiency virus [HIV] disease; H90.5 Unspecified sensorineural hearing loss; N18.3 Chronic kidney disease, stage 3 (moderate); G47.00 Insomnia, unspecified; F17.200 Nicotine dependence, unspecified, uncomplicated; Z79.891 Long term (current) use of opiate analgesic; Z79.899 Other long term (current) drug therapy

== ENCOUNTER 2017-02-14 13:21 | Inpatient (IN) | payer MEDICAID, OTHER ==
[~2017-02-14] VITALS: Ht 172.7 cm; Wt 77.0 kg
[2017-02-14] MEDS ORDERED: NS 1,000 ML IV ONE (13:45)
[2017-02-14 14:05] LABS: BASO % 0.4 % (0.0-1.0); EOS # 0.2 K/mm3 (0.0-0.50); EOS % 1.7 % (0.0-3.0); LARGE UNSTAINED CELL # 0.2 K/mm3 (0.0-0.4); LARGE UNSTAINED CELL % 1.7 % (0.0-4.0); MEAN CORPUSCULAR HEMOGLOBIN 36.6 pg (27.0-33.0); MEAN CORPUSCULAR HGB CONC 35.9 g/dl (32.0-36.5); MONO # 0.6 K/mm3 (0.0-0.8); MONO % 5.8 % (0.0-5.0); NEUTROPHILS # 7.8 K/mm3 (1.8-7.7); NEUTROPHILS % 72.3 % (36.0-66.0); PLATELET COUNT, AUTOMATED 291 k/mm3 (150-450); RED CELL DISTRIBUTION WIDTH 13.6 % (11.5-14.5); WHITE BLOOD COUNT 10.8 K/mm3 (4.0-10.0)
--- NOTE | 2017-02-14 14:13 | REP ---
Clinical: Cerebrovascular accident . Comparison: 06/17/2016 . Findings: The mediastinum and cardiac silhouette are stable and within normal limits for portable technique. The lung phan are clear without acute consolidation, effusion, or pneumothorax. Skeletal structures are intact. Impression: Normal portable chest x-ray Signed by Issac Candelario MD 02/14/2017 02:05 P
[2017-02-14] MEDS ORDERED: TRAM50TA2 PO (14:14)
[2017-02-14] MEDS ORDERED: TIZA4CAP3 PO (14:14)
[2017-02-14] MEDS ORDERED: TOPI1CAP4 PO (14:14)
[2017-02-14] MEDS ORDERED: CYCL10TA PO ×2 (14:14→17:34)
--- NOTE | 2017-02-14 14:17 | REP ---
Clinical: Altered mental status. Cerebrovascular accident. Comparison: 07/05/2015 . Findings: Age-related atrophy and microvascular ischemic changes are appreciated. The ventricles and sulci are symmetric. Dong-white differentiation is maintained. There is no evidence for acute intracranial hemorrhage, mass/mass effect, pathology or infarction. No extra-axial fluid collection. Calvarium is intact. Paranasal sinuses and mastoid air cells are clear. Impression: Age related atrophy and microvascular ischemic changes. No acute intracranial hemorrhage, infarction, or mass/mass effect. Signed by Issac Candelario MD 02/14/2017 02:08 P
[2017-02-14 14:19] LABS: INR 0.99
[2017-02-14 14:31] LABS: ANION GAP 6 MEQ/L (8-16); BLOOD UREA NITROGEN 14 MG/DL (7-18); CALCIUM LEVEL 8.6 MG/DL (8.5-10.1); CARBON DIOXIDE LEVEL 27 MEQ/L (21-32); CHLORIDE LEVEL 105 MEQ/L (98-107); CREATININE FOR GFR 1.49 MG/DL (0.70-1.30); GLOMERULAR FILTRATION RATE 53.6 (>60); GLUCOSE, FASTING 83 MG/DL (70-105); SODIUM LEVEL 138 MEQ/L (136-145)
[2017-02-14] MEDS ORDERED: MORPHINE 2 MG/ML 1ML SYRINGE IV ONE (14:45)
[2017-02-14] MEDS ORDERED: METOCLOPRAMIDE INJ 10MG/2ML VIAL (J2765) IV ONE (14:45)
[2017-02-14 15:07] LABS: METHADONE URINE NEGATIVE (NEGATIVE)
[2017-02-14] MEDS ORDERED: NS 1,000 ML IV SCH (17:57)
[2017-02-14] MEDS ORDERED: ACETAMINOPHEN TAB 650MG DOSE (2X325MG) PO PRN (18:00)
[2017-02-14] MEDS ORDERED: PERCOCET 5MG/325MG TAB PO PRN (18:00)
[2017-02-14] MEDS ORDERED: MORPHINE 2 MG/ML 1ML SYRINGE IV PRN (18:00)
[2017-02-14] MEDS ORDERED: ONDANSETRON 4MG/2ML VIAL (J2405) IV PRN (18:00)
[2017-02-14] MEDS ORDERED: BISACODYL 5 MG TAB PO PRN (18:00)
[2017-02-14] MEDS ORDERED: TOPI50TA4 PO (18:05)
[2017-02-14] MEDS ORDERED: DULO1CAP2 PO (18:05)
[2017-02-14] MEDS ORDERED: VITMTA PO (18:07)
[2017-02-14] MEDS ORDERED: IPRATROPIUM 0.5MG/ALBUTEROL 2.5MG INH SOL UD 3ML (DUONEB)(J7620) NEB PRN (18:15)
[2017-02-14] MEDS ORDERED: NICOTINE 21MG/24HR 1 EA TRANSDERMAL TD PRN (18:15)
[2017-02-14 18:24] LABS: MAGNESIUM LEVEL 1.9 MG/DL (1.8-2.4)
--- NOTE | 2017-02-14 20:13 | REP ---
Clinical: Syncope . Technique: Dong scale and color Doppler evaluation using linear high frequency transducer Findings: Two-dimensional dong scale and color images demonstrate minimal atheromatous plaquing and normal arterial lumen with laminar flow and no appreciable narrowing. Color Doppler interrogation demonstrates normal arterial wave patterns and velocities with no significant spectral broadening. Normal flow direction is appreciated in the bilateral vertebral arteries. RIGHT (cm/s) LEFT (cm/s) ICA peak systolic velocity 61.8 76.1 ICA diastolic velocity 23.4 29.0 ECA peak systolic velocity 117.7 90.6 CCA peak systolic velocity 96.3 91.2 ICA/CCA ratio 0.64 0.83 Impression: No hemodynamically significant areas of narrowing or stenosis appreciated. Based on set standards narrowing falls within the less than 50% range. Signed by Issac Candelario MD 02/14/2017 08:04 P
[2017-02-14] MEDS: IPRATROPIUM 0.5MG/ALBUTEROL 2.5MG INH SOL UD 3ML (DUONEB)(J7620) NEB SCH (20:26)
--- NOTE | 2017-02-14 20:40 | HPE ---
DATE OF ADMISSION: 02/14/2017 PRIMARY CARE PROVIDER: Infectious disease Dr. Silva. PSYCHIATRIST: Dr. Razo. Patient is following pain management. CHIEF COMPLAINT: Lightheadedness and dizziness, and one episode of syncope. HISTORY OF PRESENT ILLNESS: Mr. Heredia is a 46 male with multiple past medical history who presented to emergency room (ER) due to experiencing lightheadedness, dizziness and one episode of syncope. The patient expressed that for the past two months, he has been experiencing lightheadedness and dizziness, especially standing up from a sitting position. However, this morning when he was taking his son to the back yard, he felt extremely lightheaded and dizzy and he collapsed. However, he did not lose his consciousness. He just blanked out and the patient expressed that several hours after that when he was in the kitchen, he had an episode of syncope. The patient does not remember anything during the episode of syncope, and according to him and his , he was unconscious about 20 minutes. The patient denied chest pain, palpitations, racing or skipping heart beat before, during or after these episodes. The patient also denies seizure-type activity or losing bowel or bladder control. The patient denies fever, chills or night sweats. However, last night the patient experienced headache - he cannot sleep until 7 a.m., and slept about an hour and 30 minutes. The patient did not have sick contacts. PAST MEDICAL HISTORY: 1. HIV AIDS. 2. Migraine headache with memory loss. 3. Chronic kidney disease. 4. Bipolar with psychotic features. 5. Posttraumatic stress disorder (PTSD). 6. Cluster B personality traits. 7. Insomnia. 8. History of pneumocystis pneumonia. 9. Degenerative disc disease. 10. Obstructive sleep apnea; however, the patient does not use continuous positive airway pressure (CPAP). 11. Mild hearing loss (please clarify). PAST SURGICAL HISTORY: 1. Hernia repair 1981. 2. Teeth extraction. SOCIAL HISTORY: The patient lives with his and his son and his daughter who are healthy. The patient smokes about 1-2 packs a day since . The patient also chews tobacco, about two cans per week. The patient denies illicit drug use. The patient drinks alcohol occasionally. FAMILY HISTORY: The patient has two sisters who are healthy for their age. The patient's father in 2001, due to congestive heart failure. The patient's mother is still alive; however, she has lung cancer. She was a smoker. HOME MEDICATIONS: - cyclobenzaprine 10 mg by mouth twice a day - duloxetine 30 mg by mouth daily - multivitamin one tablet by mouth daily - tizanidine 4 mg by mouth three times a day - topiramate 50 mg by mouth daily - tramadol 100 mg by mouth twice a day - Triumeq 600-50-300 one tablet by mouth daily REVIEW OF SYSTEMS: GENERAL: The patient denies fever, chills, night sweats. However, patient does not know if he has lost or gained weight. HEENT: The patient has had lightheadedness, dizziness. The patient also had one episode of syncope. The patient also experienced one episode of severe headache last night. However, the patient denies acute visual or hearing changes. The patient also denies sinusitis or problem with chewing food. NECK: The patient denies lumps, bumps or decreased range of motion of his neck. HEART: The patient denies palpitations, racing or skipping heart beat or chest pain. LUNGS: The patient denied shortness of breath or new coughing. However, the patient has chronic cough due to smoking. ABDOMEN: The patient denies abdominal pain, nausea, vomiting, diarrhea, constipation, melena, hematochezia or hemoptysis. NEUROLOGIC: The patient denies history of transient ischemic attack (TIA), cerebrovascular accident (CVA), or seizure-type activity. PHYSICAL EXAMINATION: VITAL SIGNS: Temperature 97.1, pulse 66, respiratory rate 16, blood pressure 83/54, pulse oximetry 93% on room air. GENERAL APPEARANCE: The patient was lying in bed in no acute distress. The patient was awake, alert, and oriented to time, place, and person. HEENT: Normocephalic, atraumatic. Pupils are equal and reactive to light. Oral mucosa is moist. NECK: Soft, supple. No lymphadenopathy, thyromegaly or jugular venous distention (JVD). HEART: Regular rate and rhythm. Normal S1, S2. ABDOMEN: Soft, nontender. Positive bowel sounds in all quadrants. NEUROLOGIC: Cranial nerves II through XII grossly intact. No focal deficiencies. EXTREMITIES: No lower extremity edema. Plus two pulses in both upper and lower extremities. Normal range of motion both upper and lower extremities and normal strength in both upper and lower extremities. LABORATORY DATA: White blood cells 10.8, red blood cells 4.49, hemoglobin 16.4, hematocrit 45.8, MCV 102, MCH 36.6, MCHC 35.9, RDW 13.6, platelet count 291. Neutrophil percentage 72.3, lymphocyte percentage 18, monocytes percentage 5.8, eosinophils percentage 1.7, basophils percentage 0.4, leukocyte percentage 1.7. ESR 23. PT 13.2, INR 0.99, APTT 29.1. Sodium 138, potassium 4, chloride 105, carbon dioxide 27, anion gap 6, BUN 14, creatinine 1.49, glomerular filtration rate 53.6, fasting glucose 83, lactic acid 0.9, calcium 8.6, magnesium 1.9. Total creatine kinase 52, CK-MB 1, CK-MB relative index 1.92, troponin I less than 0.02. C-reactive protein is 0.3. TSH 2.02. TOXICOLOGY: Negative ethyl alcohol 0.004. MICROBIOLOGY: Blood culture is pending. IMAGING: CT of the head without contrast shows age-related atrophy with microvascular ischemic changes. No acute intracranial hemorrhage, infarction or mass or mass effect. Chest x-ray shows normal portable chest x-ray. ASSESSMENT AND PLAN: 1. Dizziness, lightheadedness and one episode of syncope. Electrocardiogram (EKG) indicated sinus bradycardia with first-degree AV block. However, the patient's EKG from 08/02/2012, indicated first-degree block. Based on presentation, this is possibly cardiogenic related. However, we have ordered MRI/MRA, and the result is pending at this time. Also, we have ordered carotid ultrasound as well as echocardiogram, and the result is pending. We have checked the cardiac marker and the first set was negative. We will repeat the cardiac marker for two more sets. The patient received one liter intravenous (IV) bolus. However, at this time the patient does not require to be on IV fluid. We will continue to monitor the patient for any abnormal symptoms. 2. HIV AIDS. This is a chronic issue. At this point, we will continue the patient on Triumeq 600-50-300 mg. According to the patient, the HIV virus in undetectable, has normal CD4. 3. Chronic kidney disease stage III. The patient was following with Dr. Saenz; however, the patient at this time is at his baseline. The patient received one liter of IV fluid bolus. At this time, we will continue to monitor patient for any abnormal symptoms. Also, we prevent using nephrogenic medications. 4. Insomnia. This is a chronic issue. The patient is stable at this time. 5. Posttraumatic stress disorder (PTSD). We will continue the patient on Cymbalta. 6. Deep venous thrombosis (DVT) prophylaxis. The patient is on heparin 5000 units twice a day. 7. Degenerative disc disease. At home, the patient is on cyclobenzaprine and tizanidine. However, I have held these medications due to the lightheadedness and dizziness and episode of syncope. We continue the patient on Ultram 100 mg by mouth twice a day. The patient is also on Cymbalta. 8. Obstructive sleep apnea. The patient has been diagnosed with obstructive sleep apnea; however, the patient does not use CPAP. 9. Bipolar without psychotic features. At this time, the patient is stable. 10. Migraine headache. We will continue the patient on Topamax 50 mg by mouth daily. My preceptor for this patient encounter was Dr. Taniya Garza. The preceptor was physically present in the building during the encounter and was fully available as needed. All aspects of the patient interview, examination, medical decision making process, and medical care plan development were reviewed and approved by the preceptor. The preceptor is aware and concurs with the plan as stated in the body of this note and will attest to such by his/her co-signature.
[2017-02-14 20:55] VITALS: BP 122/78
[2017-02-14] MEDS ORDERED: traZODone 50 MG TAB PO ONE (21:45)
[2017-02-14] MEDS ORDERED: TRAZ300T2 PO (21:59)
[2017-02-14] MEDS: HEPARIN SOD (PORCINE) 5000 UNITS/ML VIAL SC SCH (22:02)
[2017-02-14] MEDS: traMADol 50 MG TAB PO SCH (22:02)
[2017-02-14 23:59] VITALS: BP_SYST 122; BP_SYST 131; BP_SYST 93; BP_SYST 99; BP_DIAS 50; BP_DIAS 58; BP_DIAS 63; BP_DIAS 65
[2017-02-15] MEDS: IPRATROPIUM 0.5MG/ALBUTEROL 2.5MG INH SOL UD 3ML (DUONEB)(J7620) NEB SCH ×2 (01:28→08:00)
[2017-02-15 03:44] VITALS: BP 101/58
[2017-02-15 04:02] LABS: BASO % 0.3 % (0.0-1.0); EOS # 0.2 K/mm3 (0.0-0.50); EOS % 2.7 % (0.0-3.0); LARGE UNSTAINED CELL # 0.1 K/mm3 (0.0-0.4); LARGE UNSTAINED CELL % 1.3 % (0.0-4.0); LYMPH # 1.9 K/mm3 (1.5-4.5); LYMPH % 25.1 % (24.0-44.0); MEAN CORPUSCULAR HEMOGLOBIN 36.1 pg (27.0-33.0); MEAN CORPUSCULAR HGB CONC 35.7 g/dl (32.0-36.5); MEAN CORPUSCULAR VOLUME 100.9 fl (80.0-96.0); MONO # 0.4 K/mm3 (0.0-0.8); NEUTROPHILS # 4.8 K/mm3 (1.8-7.7); NEUTROPHILS % 65.6 % (36.0-66.0); PLATELET COUNT, AUTOMATED 268 k/mm3 (150-450); WHITE BLOOD COUNT 7.3 K/mm3 (4.0-10.0)
[2017-02-15 04:38] LABS: ALBUMIN 3.2 GM/DL (3.2-5.2); ALBUMIN/GLOBULIN RATIO 0.89 (1.00-1.93); ALKALINE PHOSPHATASE 71 U/L (45-117); ALT/SGPT 28 U/L (12-78); ANION GAP 5 MEQ/L (8-16); AST/SGOT 18 U/L (15-37); BILIRUBIN,TOTAL 0.3 MG/DL (0.2-1.0); BLOOD UREA NITROGEN 17 MG/DL (7-18); CALCIUM LEVEL 8.3 MG/DL (8.5-10.1); CARBON DIOXIDE LEVEL 28 MEQ/L (21-32); CHLORIDE LEVEL 106 MEQ/L (98-107); CREATININE FOR GFR 1.46 MG/DL (0.70-1.30); GLOMERULAR FILTRATION RATE 54.9 (>60); GLUCOSE, FASTING 119 MG/DL (70-105); MAGNESIUM LEVEL 1.7 MG/DL (1.8-2.4); POTASSIUM SERUM 3.8 MEQ/L (3.5-5.1); SODIUM LEVEL 139 MEQ/L (136-145); TOTAL PROTEIN 6.8 GM/DL (6.4-8.2)
[2017-02-15] MEDS ORDERED: SODIUM CHLORIDE 0.9% 1000 ML IV ONE (07:30)
[2017-02-15 08:00] VITALS: BP_SYST 128; BP_SYST 131; BP_DIAS 76; BP_DIAS 79; BP_DIAS 81
[2017-02-15] MEDS: HEPARIN SOD (PORCINE) 5000 UNITS/ML VIAL SC SCH (08:56)
[2017-02-15] MEDS: traMADol 50 MG TAB PO SCH (08:57)
[2017-02-15] MEDS ORDERED: MULTIVITAMINS/MINERALS THERAP 1 TAB PO SCH (09:00)
[2017-02-15] MEDS ORDERED: TOPIRAMATE (TopAMAX) 25 MG TAB PO SCH (09:00)
[2017-02-15] MEDS ORDERED: DULoxetine 30 MG CAP (CYMBALTA) PO SCH (09:00)
--- NOTE | 2017-02-15 09:19 | ECGEPIP ---
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
[2017-02-15] MEDS ORDERED: NICO21PAT TD (09:20)
[2017-02-15 09:30] VITALS: BP_SYST 122; BP_SYST 129; BP_SYST 131; BP_DIAS 80; BP_DIAS 81; BP_DIAS 84
[2017-02-15] MEDS ORDERED: ZOFR4TAB3 PO (09:37)
--- NOTE | 2017-02-15 11:15 | DSES ---
DATE OF ADMISSION: 02/14/2017 DATE OF DISCHARGE: 02/15/2017 PRIMARY CARE PROVIDER: Dr. Silva. INFECTIOUS DISEASE: Dr. Silva PSYCHIATRIST: Dr. Razo CONSULTATIONS: None. PROCEDURES: None. COMPLICATIONS: None. ADMISSION/DISCHARGE DIAGNOSES: 1. Recurrent weakness with questionable presyncope with negative workup in the hospital. 2. HIV with history of AIDS. 3. Migraine headaches with memory loss. 4. Chronic kidney disease (CKD). 5. Bipolar disorder with psychotic features. 6. Posttraumatic stress disorder (PTSD). 7. Cluster B personality traits. 8. Insomnia. 9. History of Pneumocystis pneumonia. 10. Degenerative disk disease. 11. Obstructive sleep apnea (LEXY) on CPAP. 12. Mild hearing loss by history. BRIEF HOSPITAL COURSE: The patient presented to the emergency department for symptoms of lightheadedness, dizziness episode of what sounds to be like presyncope. He stated that he was carrying a small child at the time and felt that he was going to pass out. Did state he blacked out; however, as he went to his knees he was able to set child down on their feet. He denies history of seizure disorder. There was no witnessed seizure. No bladder or bowel incontinence. His stated that he was unconscious for 20 minutes, but he denied any chest pain, palpitations, racing or skipping heartbeats. No history of sick contacts. His workup in the emergency department was relatively unremarkable; however, it was felt that it would be prudent to keep him on telemetry overnight. Discussion with Dr. Carrillo suggested that he may need outpatient workup with EMG. White count on admission was 10.8, normal hemoglobin and hematocrit, sed rate was 23. Sodium and electrolytes unremarkable, creatinine 1.49, but apparently he does have an underlying history of CKD stage 3, which has been relatively stable. His troponin less than 0.02 on three occasions and his 12-lead EKG was unremarkable. Carotid ultrasound demonstrated less than 50% occlusion bilaterally. Head CT age-related atrophy and microvascular ischemic changes, but no intracranial hemorrhage, mass or infarct noted. Chest x-ray was unremarkable. Brain MRI and MRA were unremarkable for any acute findings. 2D echo preliminary report did not demonstrate any structural abnormalities or significant reduction in his ejection fraction. Blood pressures been good. Orthostatics are unremarkable and on the day of discharge, he was felt to be back to his baseline and will need appropriate outpatient followup with his primary as well as with Dr. Carrillo. Temperature is 99.1, pulse 74, blood pressure is 131/81, orthostatics unremarkable, and SPO2 is 98% on room air. He did state prior to my entering the room that he had a small episode of nausea with some loose stool and was unsure if he had been exposed to any sick contacts in the last few days. There has been a viral gastroenteritis that has been in the community and this may be attributed to this. At any rate, the patient is not orthostatic. He is able tolerate his meal currently and is wishing to be discharged. DISCHARGE CONDITION: Good. DISPOSITION: Discharge home. LABORATORY DATA: Today, white count is 7.3, hemoglobin 14.4, platelets 268. Sodium 139, potassium 3.8, chloride 106, bicarb 28, anion gap 5, BUN is 17, creatinine 1.46, glucose 119. AST 18, ALT 28, alkaline phosphatase 71, troponin less than 0.02. DISCHARGE MEDICATIONS: - Zofran ODT 4 mg every 4 hours as needed - Nicoderm patch 21 mg patch daily. Encouraged smoking cessation. - Flexeril 10 mg twice a day - duloxetine 30 mg daily - multivitamin one tablet daily - tizanidine 4 mg three times a day - topiramate 50 mg daily - Tramadol 100 mg twice a day - trazodone 300 mg at bedtime - Triumeq one tablet daily, prescribed by Dr. Silva DISCHARGE INSTRUCTIONS: Discharge to home. Activity as tolerated. Regular diet. Push plenty of fluids including water, Gatorade or Powerade. Encouraged to seek medical attention if symptoms should worsen or progress. He voices understanding. Followup with Dr. Silva in a week. Keep regular appointments with Dr. Razo for psychiatric issues. Discharge took approximately 35 minutes.
--- NOTE | 2017-02-15 12:37 | ECHO ---
DATE OF SERVICE: 02/15/2017 REFERRING PROVIDER: Dr. Chuy Clarke PATIENT LOCATION: Room 3229 REASON FOR ECHOCARDIOGRAM: Syncope. 2D MEASUREMENTS: IVS: 1.1 cm LV: 3.8 cm LVPW: 1.1 cm LA: 3.9 cm Aorta: 3.4 cm Ascending aorta: 2.8 RV: 2.6 cm 2D COMMENTS: 1. Normal left ventricular size, wall thickness and normal global left ventricular systolic function. The estimated left ventricular systolic ejection fraction is 65-70%. 2. Normal left atrium. Normal right atrium and right ventricle. 3. The atrial septum appeared to be normal without evidence of defect or shunt. 4. Normal aortic root and ascending aorta. 5. No pericardial effusions seen. 6. The aortic valve, mitral valve, tricuspid valve, and pulmonic valve appear to be normal. The proximal pulmonary artery branches also appear to be normal. 7. Subjectively, the inferior vena cava was normal in size. DOPPLER: No significant valvular abnormality was detected. Assessment of the left ventricular diastolic function appeared to be normal. IMPRESSION: Normal global left ventricular systolic and the stomach function. No valvular abnormalities detected. MTDD
--- NOTE | 2017-02-15 13:15 | REP ---
Clinical: Weakness. Technique: Axial T1, T2, FLAIR, and diffusion/ADC mapping sequences along with sagittal T1 sequence. Comparison: 11/19/2012. Findings: The ventricles, sulci, and cisterns are symmetric and normal. Dong-white differentiation is maintained. No acute infarction, intracranial hemorrhage, mass/mass effect or significant abnormal signal intensity abnormalities are appreciated. Few scattered small hyperintense foci on T2 and FLAIR sequences are similar to prior examination and likely represent sequelae of chronic microvascular ischemic disease. No extra-axial fluid collection. The bilateral orbits are symmetric and normal. The sinuses demonstrate minimal mucosal thickening to the ethmoid sinuses. Impression: Minimal chronic and stable microvascular ischemic changes. No acute intracranial process appreciated. Signed by Isasc Candelario MD 02/15/2017 01:07 P
--- NOTE | 2017-02-15 13:25 | REP ---
Clinical: Weakness. Technique: Axial noncontrast 3-D [id number] source images with MIP and MPR re-formations. Findings: Intracranial vasculature appears symmetric and normal. No obvious aneurysm or arteriovenous malformation is appreciated. Vasculature to the bilateral hemispheres and posterior fossa appears relatively intact and symmetric. Impression: Normal MRA of the brain. Signed by Issac Candelario MD 02/15/2017 01:18 P
== END 2017-02-15 10:55 | disposition home or self-care (01) | DRG 204 ==
LOC: M ED 14:49 → M ED INP 18:57 → M PCU 20:52
PROVIDERS: ADMIT Hospitalist; ATTEND Hospitalist
DX: R55 Syncope and collapse (principal); B20 Human immunodeficiency virus [HIV] disease; N18.3 Chronic kidney disease, stage 3 (moderate); R42 Dizziness and giddiness; H91.90 Unspecified hearing loss, unspecified ear; F43.10 Post-traumatic stress disorder, unspecified; R53.1 Weakness; G43.909 Migraine, unspecified, not intractable, without status migrainosus; F31.9 Bipolar disorder, unspecified; F60.9 Personality disorder, unspecified; G47.00 Insomnia, unspecified; G47.33 Obstructive sleep apnea (adult) (pediatric); F17.210 Nicotine dependence, cigarettes, uncomplicated; F17.220 Nicotine dependence, chewing tobacco, uncomplicated; Z79.899 Other long term (current) drug therapy; Z79.891 Long term (current) use of opiate analgesic

== ENCOUNTER → 2017-04-02 | Outpatient (REF) | payer OTHER ==
[~2017-04-02] MED LIST changes: +CYCL10TA PO; +DULO1CAP2 PO; +KEFL500C17 PO; -KEFL500C7 PO; +NICO21PAT TD; +TIZA4CAP3 PO; +TOPI1CAP4 PO; +TOPI50TA9 PO; +TRAM50TA2 PO; +TRAZ300T2 PO; +VITMTA PO; +ZOFR4TAB3 PO
[2017-04-02 13:36] LABS: ALBUMIN 4.1 GM/DL (3.2-5.2); ALBUMIN/GLOBULIN RATIO 1.08 (1.00-1.93); ALKALINE PHOSPHATASE 92 U/L (45-117); ALT/SGPT 27 U/L (12-78); ANION GAP 7 MEQ/L (8-16); AST/SGOT 20 U/L (15-37); BILIRUBIN,TOTAL 0.3 MG/DL (0.2-1.0); BLOOD UREA NITROGEN 18 MG/DL (7-18); CALCIUM LEVEL 9.1 MG/DL (8.5-10.1); CARBON DIOXIDE LEVEL 24 MEQ/L (21-32); CHLORIDE LEVEL 108 MEQ/L (98-107); CHOLESTEROL LEVEL 182 MG/DL (<200); CREATININE FOR GFR 1.45 MG/DL (0.70-1.30); GLOMERULAR FILTRATION RATE 55.1 (>60); GLUCOSE, FASTING 93 MG/DL (70-105); SODIUM LEVEL 139 MEQ/L (136-145); TOTAL PROTEIN 7.9 GM/DL (6.4-8.2); TRIGLYCERIDES LEVEL 477 MG/DL (<150)
[2017-04-04 18:14] LABS: %CD3+CD4+CD8+ 1.1 % (Not Estab.); %CD3+CD4+CD8- 31.3 % (Not Estab.); %CD3+CD4-CD8+ 35.4 % (Not Estab.); %CD3+CD4-CD8- 3.1 % (Not Estab.); ABS CD3+CD4+CD8+ 19 /uL (Not Estab.); ABS CD3+CD4+CD8- 532 /uL (Not Estab.); ABS CD3+CD4-CD8+ 602 /uL (Not Estab.); ABS CD3+CD4-CD8- 53 /uL (Not Estab.); CD4/CD8 NYSDOH RATIO 0.88 (Not Estab.); Eosinophils 1 % (.); HCT 46.2 % (37.5-51.0); Monocytes 7 % (.); Neutrophils 75 % (.); WBC 9.9 x10E3/uL (3.4-10.8)
== END ==
LOC: M SFHCPLAZ 10:50
PROVIDERS: ATTEND Internal Medicine Infectious Disease
DX: B20 Human immunodeficiency virus [HIV] disease (principal); E78.1 Pure hyperglyceridemia

== ENCOUNTER → 2017-10-01 | Outpatient (REF) | payer OTHER ==
[2017-10-01 12:57] LABS: ALBUMIN 3.8 GM/DL (3.2-5.2); ALKALINE PHOSPHATASE 79 U/L (45-117); ALT/SGPT 31 U/L (12-78); ANION GAP 10 MEQ/L (8-16); APPEARANCE, URINE CLEAR (CLEAR); AST/SGOT 28 U/L (7-37); BACTERIA, URINE AUTO NEGATIVE (NEGATIVE); BILIRUBIN, URINE AUTO NEGATIVE (NEGATIVE); BILIRUBIN,TOTAL 0.6 MG/DL (0.2-1.0); BLOOD UREA NITROGEN 14 MG/DL (7-18); BLOOD, URINE BLOOD NEGATIVE (NEGATIVE); CALCIUM LEVEL 8.8 MG/DL (8.5-10.1); CARBON DIOXIDE LEVEL 26 MEQ/L (21-32); CHLORIDE LEVEL 104 MEQ/L (98-107); CHOLESTEROL LEVEL 202 MG/DL (<200); CHOLESTEROL RISK RATIO 4.391 (<5); COLOR, URINE YELLOW (YELLOW); CREATININE FOR GFR 1.48 MG/DL (0.70-1.30); GLOMERULAR FILTRATION RATE 53.8 (>60); GLUCOSE, FASTING 92 MG/DL (70-105); GLUCOSE, URINE (UA) AUTO NEGATIVE (NEGATIVE); HDL CHOLESTEROL 46 MG/DL (>40); KETONE, URINE AUTO NEGATIVE (NEGATIVE); LDL CHOLESTEROL 117.6 MG/DL (<100); LEUKOCYTE ESTERASE, URINE AUTO TRACE (NEGATIVE); NITRITE, URINE AUTO NEGATIVE (NEGATIVE); NON-HDL-C 156 MG/DL; POTASSIUM SERUM 4.4 MEQ/L (3.5-5.1); PROTEIN, URINE AUTO NEGATIVE (NEGATIVE); RBC, URINE AUTO 1 /HPF (0-3); SODIUM LEVEL 140 MEQ/L (136-145); SPECIFIC GRAVITY URINE AUTO 1.017 (1.002-1.035); SQUAMOUS EPITHELIAL CELL UR AU 0 /HPF (0-6); TOTAL PROTEIN 7.6 GM/DL (6.4-8.2); TRIGLYCERIDES LEVEL 192 MG/DL (<150); UROBILINOGEN, URINE AUTO 0.2 mg/dL (0.0-2.0); WBC, URINE AUTO 4 /HPF (0-3)
[2017-10-01 14:51] LABS: CHLAMYDIA DNA AMPLIFICATION NEGATIVE (NEGATIVE); GC DNA AMPLIFICATION NEGATIVE (NEGATIVE)
[2017-10-03 14:10] LABS: QUANTIFERON GOLD TB Negative (Negative); TB Test (QFT) Antigen 0.02 IU/mL (.); TB Test (QFT) Mitogen 5.79 IU/mL (.); TB Test (QFT) Nil 0.02 IU/mL (.)
[2017-10-06 00:08] LABS: % CD8 Pos Lymph 33.8 % (12.0-35.5); %CD4 Pos Lymphs 34.3 % (30.8-58.5); ABS Eosinophils 0.1 x10E3/uL (0.0-0.4); ABS Lymphs 1.5 x10E3/uL (0.7-3.1); ABS Monocytes 0.5 x10E3/uL (0.1-0.9); ABS Neutophils 4.7 x10E3/uL (1.4-7.0); Abs CD4 Helper 515 /uL (359-1519); Abs CD8 Suppres 507 /uL (109-897); CD4/CD8 Ratio 1.01 (0.92-3.72); Eosinophils 2 % (Not Estab.); HCT 44.5 % (37.5-51.0); HEMATOLOGY COMMENTS Note: (.); HGB 16.4 g/dL (13.0-17.7); HIV-1 RNA PCR QUANT 2 LC550285 <20 copies/mL (.); Immature Grans 0 % (Not Estab.); Lymphocytes 22 % (Not Estab.); MCH 35.9 pg (26.6-33.0); MCHC 36.9 g/dL (31.5-35.7); MCV 97 fL (79-97); Monocytes 8 % (Not Estab.); Neutrophils 67 % (Not Estab.); Platelets 312 x10E3/uL (150-379); RBC 4.57 x10E6/uL (4.14-5.80); RDW 14.2 % (12.3-15.4)
== END ==
LOC: M SFHCPLAZ 08:20
DX: B20 Human immunodeficiency virus [HIV] disease (principal); E78.1 Pure hyperglyceridemia

== ENCOUNTER → 2018-02-04 | Outpatient (REF) | payer OTHER ==
[2018-02-04 12:25] LABS: ALBUMIN 4.2 GM/DL (3.2-5.2); ALBUMIN/GLOBULIN RATIO 1.05 (1.00-1.93); ALKALINE PHOSPHATASE 74 U/L (45-117); ALT/SGPT 33 U/L (12-78); ANION GAP 6 MEQ/L (8-16); AST/SGOT 29 U/L (7-37); BILIRUBIN,TOTAL 0.5 MG/DL (0.2-1.0); BLOOD UREA NITROGEN 14 MG/DL (7-18); CALCIUM LEVEL 8.8 MG/DL (8.5-10.1); CARBON DIOXIDE LEVEL 27 MEQ/L (21-32); CHLORIDE LEVEL 107 MEQ/L (98-107); CREATININE FOR GFR 1.27 MG/DL (0.70-1.30); GLOMERULAR FILTRATION RATE > 60.0 (>60); GLUCOSE, FASTING 75 MG/DL (70-100); POTASSIUM SERUM 4.3 MEQ/L (3.5-5.1); SODIUM LEVEL 140 MEQ/L (136-145); TOTAL PROTEIN 8.2 GM/DL (6.4-8.2)
[2018-02-10 00:06] LABS: % CD8 Pos Lymph 33.4 % (12.0-35.5); %CD4 Pos Lymphs 38.3 % (30.8-58.5); ABS Eosinophils 0.2 x10E3/uL (0.0-0.4); ABS Lymphs 2.1 x10E3/uL (0.7-3.1); ABS Monocytes 0.7 x10E3/uL (0.1-0.9); ABS Neutophils 7.6 x10E3/uL (1.4-7.0); Abs CD4 Helper 804 /uL (359-1519); Abs CD8 Suppres 701 /uL (109-897); CD4/CD8 Ratio 1.15 (0.92-3.72); Eosinophils 2 % (Not Estab.); HCT 49.1 % (37.5-51.0); HIV-1 RNA PCR QUANT 2 LC550285 <20 copies/mL (.); Immature Grans 0 % (Not Estab.); Lymphocytes 20 % (Not Estab.); MCH 34.5 pg (26.6-33.0); MCHC 34.6 g/dL (31.5-35.7); MCV 100 fL (79-97); Monocytes 7 % (Not Estab.); Neutrophils 71 % (Not Estab.); Platelets 285 x10E3/uL (150-379); RBC 4.93 x10E6/uL (4.14-5.80); TESTOSTERONE FREE (DIRECT) 11.3 pg/mL (6.8-21.5); WBC 10.6 x10E3/uL (3.4-10.8)
== END ==
LOC: M SFHCPLAZ 08:17
DX: B20 Human immunodeficiency virus [HIV] disease (principal); N52.9 Male erectile dysfunction, unspecified
CPT/HCPCS: 84403

== ENCOUNTER 2018-05-18 14:18 | Emergency (ER) | payer OTHER ==
[2018-05-18 14:42] LABS: HEMATOCRIT 44.2 % (42.0-52.0); HEMOGLOBIN 15.8 g/dl (13.5-17.5); MEAN CORPUSCULAR HEMOGLOBIN 34.8 pg (27.0-33.0); MEAN CORPUSCULAR HGB CONC 35.7 g/dl (32.0-36.5); MEAN CORPUSCULAR VOLUME 97.4 fl (80.0-96.0); PLATELET COUNT, AUTOMATED 298 10^3/uL (150-450); RED BLOOD COUNT 4.54 10^6/uL (4.30-6.10); RED CELL DISTRIBUTION WIDTH 13.4 % (11.5-14.5); WHITE BLOOD COUNT 9.2 10^3/uL (4.0-10.0)
[2018-05-18] MEDS: ONDANSETRON 4MG/2ML VIAL (J2405) IV (14:49)
[2018-05-18] MEDS: ADACEL/BOOSTRIX VACCINE (DIPHTH/PERTUSS/ACELL/TETANUS)0.5ML SYR (90715) IM (14:49)
[2018-05-18] MEDS: MORPHINE 4 MG/ML 1ML VIAL/SYRINGE (J2270) IV (14:49)
[2018-05-18 14:57] LABS: INR 0.98; PROTHROMBIN TIME 13.1 SECONDS (12.1-14.4)
[2018-05-18 15:02] LABS: ANION GAP 8 MEQ/L (8-16); BLOOD UREA NITROGEN 22 MG/DL (7-18); CALCIUM LEVEL 8.7 MG/DL (8.5-10.1); CARBON DIOXIDE LEVEL 23 MEQ/L (21-32); CHLORIDE LEVEL 107 MEQ/L (98-107); CREATININE FOR GFR 1.73 MG/DL (0.70-1.30); GLOMERULAR FILTRATION RATE 44.7 (>56); GLUCOSE, FASTING 96 MG/DL (70-100); POTASSIUM SERUM 3.9 MEQ/L (3.5-5.1); SODIUM LEVEL 138 MEQ/L (136-145)
[2018-05-18] MEDS ORDERED: ISOVUE-370 76% 100ML VIAL (Q9967) As Ordered (15:06)
[2018-05-18 15:10] LABS: KETONE, URINE AUTO RFX TRACE mg/dL (NEGATIVE); NITRITE, URINE AUTO RFX NEGATIVE (NEGATIVE); RBC, URINE AUTO RFX 1 /HPF (0-3); SPECIFIC GRAVITY UR AUTO RFX 1.025 (1.002-1.035); SQUAM EPITHELIAL CELL UR AURFX 0 /HPF (0-6); WBC, URINE AUTO RFX 1 /HPF (0-3)
[2018-05-18 15:13] LABS: LEUKOCYTE ESTERASE UR AUTO RFX TRACE (NEGATIVE)
== END 2018-05-18 17:14 | disposition home or self-care (01) ==
LOC: M ED 14:18
DX: S20.212A Contusion of left front wall of thorax, initial encounter (principal); S80.12XA Contusion of left lower leg, initial encounter; S70.02XA Contusion of left hip, initial encounter; W14.XXXA Fall from tree, initial encounter; Y92.018 Other place in single-family (private) house as the place of occurrence of the external cause; N28.9 Disorder of kidney and ureter, unspecified; G43.909 Migraine, unspecified, not intractable, without status migrainosus; Z79.899 Other long term (current) drug therapy; F17.210 Nicotine dependence, cigarettes, uncomplicated
CPT/HCPCS: J2270

== ENCOUNTER 2018-05-20 20:25 | Emergency (ER) | payer OTHER ==
[2018-05-20] MEDS: NS 1,000 ML IV (21:34)
[2018-05-20] MEDS: ONDANSETRON 4MG/2ML VIAL (J2405) IV (21:34)
[2018-05-20] MEDS: MORPHINE 4 MG/ML 1ML VIAL/SYRINGE (J2270) IV (21:35)
[2018-05-20 21:52] LABS: BASO % 0.4 % (0.0-1.0); EOS # 0.1 10^3/uL (0.0-0.50); EOS % 1.1 % (0.0-3.0); HEMATOCRIT 41.9 % (42.0-52.0); HEMOGLOBIN 15.2 g/dl (13.5-17.5); IMMATURE GRANULOCYTE % 0.5 % (0-3.0); LYMPH % 9.5 % (24.0-44.0); MEAN CORPUSCULAR HEMOGLOBIN 35.1 pg (27.0-33.0); MEAN CORPUSCULAR HGB CONC 36.3 g/dl (32.0-36.5); MEAN CORPUSCULAR VOLUME 96.8 fl (80.0-96.0); MONO # 0.6 10^3/uL (0.0-0.8); MONO % 6.2 % (0.0-5.0); NEUTROPHILS # 8.4 10^3/uL (1.8-7.7); NEUTROPHILS % 82.3 % (36.0-66.0); PLATELET COUNT, AUTOMATED 252 10^3/uL (150-450); RED BLOOD COUNT 4.33 10^6/uL (4.30-6.10); WHITE BLOOD COUNT 10.3 10^3/uL (4.0-10.0)
[2018-05-20 21:54] LABS: VENOUS BASE EXCESS -2.2 (-2.0-2.0); VENOUS HCO3 22.1 MEQ/L (23.0-27.0); VENOUS PARTIAL PRESSURE CO2 36.9 mmHg (38.0-50.0); VENOUS PARTIAL PRESSURE O2 77.5 mmHg (30.0-50.0); VENOUS PH 7.396 UNITS (7.330-7.430); VENOUS STANDARD HCO3 22.6 MEQ/L; VENOUS TOTAL CO2 23.3 MEQ/L (24.0-28.0)
[2018-05-20 22:12] LABS: LACTIC ACID SEPSIS PROTOCOL 0.4 MMOL/L (0.4-2.0)
[2018-05-20 22:13] LABS: BLOOD UREA NITROGEN 16 MG/DL (7-18); CALCIUM LEVEL 8.4 MG/DL (8.5-10.1); CARBON DIOXIDE LEVEL 24 MEQ/L (21-32); CHLORIDE LEVEL 102 MEQ/L (98-107); CREATININE FOR GFR 1.47 MG/DL (0.70-1.30); GLUCOSE, FASTING 106 MG/DL (70-100); POTASSIUM SERUM 3.9 MEQ/L (3.5-5.1); SODIUM LEVEL 135 MEQ/L (136-145); TROPONIN I < 0.02 NG/ML (< 0.10)
[2018-05-20 22:22] LABS: CK-MB VALUE MASS < 1.0 NG/ML (<3.6); CPK CREATINE PHOSPHOKINASE 1063 U/L (39-308); MB/CK RELATIVE INDEX 0.09 (< OR =4)
[2018-05-20 22:26] LABS: ANION GAP 9 MEQ/L (8-16)
[2018-05-21] MEDS: OXYCODONE/APAP 5MG/325MG(BULK FOR ED) 1 TABLET PO (00:52)
== END 2018-05-21 00:56 | disposition home or self-care (01) ==
LOC: M ED 20:25
DX: S22.42XA Multiple fractures of ribs, left side, initial encounter for closed fracture (principal); W17.89XA Other fall from one level to another, initial encounter; Y92.89 Other specified places as the place of occurrence of the external cause; B20 Human immunodeficiency virus [HIV] disease; Z79.899 Other long term (current) drug therapy; F17.210 Nicotine dependence, cigarettes, uncomplicated
CPT/HCPCS: J2270

== ENCOUNTER → 2018-08-17 | Outpatient (REF) | payer OTHER ==
[2018-08-17 15:53] LABS: APPEARANCE, URINE CLEAR (CLEAR); BACTERIA, URINE AUTO NEGATIVE (NEGATIVE); BILIRUBIN, URINE AUTO NEGATIVE (NEGATIVE); BLOOD, URINE BLOOD 1+ (NEGATIVE); COLOR, URINE YELLOW (YELLOW); GLUCOSE, URINE (UA) AUTO NEGATIVE (NEGATIVE); KETONE, URINE AUTO NEGATIVE (NEGATIVE); LEUKOCYTE ESTERASE, URINE AUTO NEGATIVE (NEGATIVE); NITRITE, URINE AUTO NEGATIVE (NEGATIVE); PROTEIN, URINE AUTO NEGATIVE (NEGATIVE); RBC, URINE AUTO 1 /HPF (0-3); SPECIFIC GRAVITY URINE AUTO 1.014 (1.002-1.035); SQUAMOUS EPITHELIAL CELL UR AU 0 /HPF (0-6); UROBILINOGEN, URINE AUTO 0.2 mg/dL (0.0-2.0); WBC, URINE AUTO 1 /HPF (0-3)
[2018-08-17 15:58] LABS: ALBUMIN 3.9 GM/DL (3.2-5.2); ALBUMIN/GLOBULIN RATIO 1.03 (1.00-1.93); ALKALINE PHOSPHATASE 83 U/L (45-117); ALT/SGPT 29 U/L (12-78); ANION GAP 7 MEQ/L (8-16); AST/SGOT 22 U/L (7-37); BILIRUBIN,TOTAL 0.3 MG/DL (0.2-1.0); BLOOD UREA NITROGEN 19 MG/DL (7-18); CALCIUM LEVEL 9.2 MG/DL (8.5-10.1); CARBON DIOXIDE LEVEL 24 MEQ/L (21-32); CHLORIDE LEVEL 102 MEQ/L (98-107); CHOLESTEROL LEVEL 202 MG/DL (<200); CHOLESTEROL RISK RATIO 5.611 (<5); CREATININE FOR GFR 1.28 MG/DL (0.70-1.30); GLOMERULAR FILTRATION RATE > 60.0 (>56); GLUCOSE, FASTING 82 MG/DL (70-100); HDL CHOLESTEROL 36 MG/DL (>40); LDL CHOLESTEROL 92 MG/DL (<100); NON-HDL-C 166 MG/DL; POTASSIUM SERUM 4.5 MEQ/L (3.5-5.1); SODIUM LEVEL 133 MEQ/L (136-145); TOTAL PROTEIN 7.7 GM/DL (6.4-8.2); TRIGLYCERIDES LEVEL 369 MG/DL (<150)
[2018-08-21 00:57] LABS: % CD8 Pos Lymph 35.3 % (12.0-35.5); %CD4 Pos Lymphs 41.9 % (30.8-58.5); ABS Eosinophils 0.1 x10E3/uL (0.0-0.4); ABS Lymphs 2.2 x10E3/uL (0.7-3.1); ABS Monocytes 0.6 x10E3/uL (0.1-0.9); ABS Neutophils 4.8 x10E3/uL (1.4-7.0); Abs CD4 Helper 922 /uL (359-1519); Abs CD8 Suppres 777 /uL (109-897); CD4/CD8 Ratio 1.19 (0.92-3.72); Eosinophils 2 % (Not Estab.); HCT 45.9 % (37.5-51.0); HGB 15.9 g/dL (13.0-17.7); HIV-1 RNA PCR QUANT 2 LC550285 <20 copies/mL (.); Immature Grans 0 % (Not Estab.); Lymphocytes 28 % (Not Estab.); MCH 34.7 pg (26.6-33.0); MCHC 34.6 g/dL (31.5-35.7); MCV 100 fL (79-97); Monocytes 7 % (Not Estab.); Neutrophils 62 % (Not Estab.); Platelets 328 x10E3/uL (150-379); RBC 4.58 x10E6/uL (4.14-5.80); RDW 14.6 % (12.3-15.4); WBC 7.7 x10E3/uL (3.4-10.8)
== END ==
LOC: M SFHCPLAZ 13:22
DX: B20 Human immunodeficiency virus [HIV] disease (principal); E78.1 Pure hyperglyceridemia
CPT/HCPCS: 80053

== ENCOUNTER → 2018-08-31 | Outpatient (CLI) | payer OTHER | LOC: M RAD 14:39 | DX: M47.812 Spondylosis without myelopathy or radiculopathy, cervical region (principal); M50.223 Other cervical disc displacement at C6-C7 level; M51.36 Other intervertebral disc degeneration, lumbar region; M50.30 Other cervical disc degeneration, unspecified cervical region; R20.0 Anesthesia of skin | CPT/HCPCS: 72141 ==

== ENCOUNTER 2018-11-28 09:59 | Emergency (ER) | payer OTHER ==
[~2018-11-28] VITALS: Ht 172.7 cm; Wt 79.1 kg
[~2018-11-28 09:59] MED LIST changes: +ATOR40TA75; +NORCOTAB PO; +PERC5TAB12 PO; +SILD100T; +TIZA4CAP PO; -TIZA4CAP3 PO; +ZOFR4TAB14 PO; -ZOFR4TAB3 PO
--- NOTE | 2018-11-28 12:12 | REP ---
Left knee five views : There is no fracture or dislocation. Mineralization and joint spaces are normal. There are no calcifications or foreign bodies. Impression: Negative left knee . Electronically Signed by Herbert Ribera MD 11/28/2018 12:03 P
[2018-11-28 13:03] VITALS: BP 153/87
== END 2018-11-28 13:04 | disposition home or self-care (01) ==
LOC: M ED 09:59
DX: M25.562 Pain in left knee (principal); R51 Headache; V68.5XXA Driver of heavy transport vehicle injured in noncollision transport accident in traffic accident, initial encounter; Y92.410 Unspecified street and highway as the place of occurrence of the external cause; N18.3 Chronic kidney disease, stage 3 (moderate); B20 Human immunodeficiency virus [HIV] disease; J44.9 Chronic obstructive pulmonary disease, unspecified; G47.33 Obstructive sleep apnea (adult) (pediatric); M54.9 Dorsalgia, unspecified; F17.200 Nicotine dependence, unspecified, uncomplicated; Z79.899 Other long term (current) drug therapy

== ENCOUNTER 2019-09-29 11:41 | Emergency (ER) | payer BC, OTHER ==
[~2019-09-29] VITALS: Ht 172.7 cm; Wt 80.5 kg
[~2019-09-29 11:41] MED LIST changes: -/MOXI40TA; +AVEL1TAB2; -DULO1CAP2 PO; +DULO1CAP5 PO; +HYDR-3715 PO; -NORCOTAB PO
[2019-09-29] MEDS ORDERED: diphenhydrAMINE INJ 50MG/ML VIAL (J1200) IV STA (12:40)
[2019-09-29] MEDS ORDERED: NS 1,000 ML IV ONE (12:45)
[2019-09-29] MEDS ORDERED: METOCLOPRAMIDE INJ 10MG/2ML VIAL (J2765) IV ONE (12:45)
--- NOTE | 2019-09-29 12:56 | REP ---
INDICATION: Headache PROCEDURE: CT head without contrast COMPARISON STUDIES: No similar prior studies FINDINGS: No acute bleed or acute large vessel territorial infarct. Ventricles, cisterns and sulci are within normal limits. No mass effect or midline shift. No abnormal fluid collections. There is sinus mucosal thickening and fluid level within the sphenoid sinus CONCLUSION: No acute intracranial findings. Sinus mucosal thickening and fluid level in the sphenoid sinus. In the proper clinical setting, sinusitis may constitute etiology for headache. Electronically Signed by Cam Andres MD 09/29/2019 12:47 P
[2019-09-29 13:18] LABS: BASO % 0.5 % (0.0-1.0); EOS # 0.1 10^3/uL (0.0-0.5); EOS % 1.7 % (0.0-3.0); HEMATOCRIT 45.9 % (42.0-52.0); HEMOGLOBIN 16.3 g/dl (13.5-17.5); LYMPH # 1.7 10^3/uL (1.5-5.0); LYMPH % 21.3 % (24.0-44.0); MEAN CORPUSCULAR HEMOGLOBIN 34.9 pg (27.0-33.0); MEAN CORPUSCULAR HGB CONC 35.5 g/dl (32.0-36.5); MEAN CORPUSCULAR VOLUME 98.3 fl (80.0-96.0); MONO # 0.6 10^3/uL (0.0-0.8); MONO % 7.9 % (0.0-5.0); NEUTROPHILS # 5.3 10^3/uL (1.5-8.5); NEUTROPHILS % 68.2 % (36.0-66.0); PLATELET COUNT, AUTOMATED 312 10^3/uL (150-450); RED BLOOD COUNT 4.67 10^6/uL (4.30-6.10); WHITE BLOOD COUNT 7.7 10^3/uL (4.0-10.0)
[2019-09-29] MEDS ORDERED: KETOROLAC 30 MG/ML VIAL (J1885) IV ONE (13:45)
[2019-09-29 13:46] LABS: ALBUMIN 3.6 GM/DL (3.2-5.2); ALT/SGPT 29 U/L (12-78); BILIRUBIN,DIRECT < 0.1 MG/DL (0.0-0.2); BILIRUBIN,TOTAL 0.3 MG/DL (0.2-1.0); BLOOD UREA NITROGEN 13 MG/DL (7-18); CALCIUM LEVEL 8.4 MG/DL (8.5-10.1); CARBON DIOXIDE LEVEL 22 MEQ/L (21-32); CHLORIDE LEVEL 107 MEQ/L (98-107); CREATININE FOR GFR 1.41 MG/DL (0.70-1.30); GLOMERULAR FILTRATION RATE 56.4 (>56); GLUCOSE, FASTING 94 MG/DL (70-100); POTASSIUM SERUM 4.6 MEQ/L (3.5-5.1); SODIUM LEVEL 136 MEQ/L (136-145); TOTAL PROTEIN 7.4 GM/DL (6.4-8.2)
[2019-09-29 13:50] LABS: ERYTHROCYTE SEDIMENTATION RATE 20 mm/hr (0-20)
[2019-09-29 16:32] VITALS: BP 128/79
[2019-09-29] MEDS ORDERED: AUGM875T28 PO (16:34)
[2019-09-29] MEDS ORDERED: FLON1SPR NARES (16:35)
[2019-09-29] MEDS ORDERED: PSEU-52 PO (16:36)
== END 2019-09-29 16:46 | disposition home or self-care (01) ==
LOC: M ED 11:41
DX: R51 Headache (principal); N18.9 Chronic kidney disease, unspecified; Z21 Asymptomatic human immunodeficiency virus [HIV] infection status; F43.10 Post-traumatic stress disorder, unspecified; Z79.899 Other long term (current) drug therapy; F17.210 Nicotine dependence, cigarettes, uncomplicated
CPT/HCPCS: 70450; 80048; 80076; 85025; 85652; 96361; 96374; 96375; 99284; J1200; J1885; J2765

== ENCOUNTER → 2019-10-11 | Outpatient (REF) | payer BC ==
[~2019-10-11] MED LIST changes: +AUGM875T28 PO; +FLON1SPR NARES; +PSEU-52 PO
[2019-10-11 13:23] LABS: APPEARANCE, URINE CLEAR (CLEAR); BACTERIA, URINE AUTO NEGATIVE (NEGATIVE); BILIRUBIN, URINE AUTO NEGATIVE (NEGATIVE); BLOOD, URINE BLOOD NEGATIVE (NEGATIVE); COLOR, URINE YELLOW (YELLOW); GLUCOSE, URINE (UA) AUTO NEGATIVE (NEGATIVE); KETONE, URINE AUTO TRACE mg/dL (NEGATIVE); LEUKOCYTE ESTERASE, URINE AUTO 1+ (NEGATIVE); MUCUS, URINE SMALL (NEGATIVE); NITRITE, URINE AUTO NEGATIVE (NEGATIVE); PROTEIN, URINE AUTO 1+ mg/dL (NEGATIVE); RBC, URINE AUTO 1 /HPF (0-3); SQUAMOUS EPITHELIAL CELL UR AU 0 /HPF (0-6); UROBILINOGEN, URINE AUTO 0.2 mg/dL (0.0-2.0); WBC, URINE AUTO 3 /HPF (0-3)
[2019-10-11 13:29] LABS: BILIRUBIN,TOTAL 0.5 MG/DL (0.2-1.0); CALCIUM LEVEL 9.1 MG/DL (8.5-10.1); CHOLESTEROL RISK RATIO 5.794 (<5); CREATININE FOR GFR 1.34 MG/DL (0.70-1.30); GLOMERULAR FILTRATION RATE 59.8 (>56); POTASSIUM SERUM 4.5 MEQ/L (3.5-5.1); TOTAL PROTEIN 7.9 GM/DL (6.4-8.2)
[2019-10-14 00:06] LABS: % CD8 Pos Lymph 36.2 % (12.0-35.5); %CD4 Pos Lymphs 34.2 % (30.8-58.5); ABS Eosinophils 0.1 x10E3/uL (0.0-0.4); ABS Monocytes 0.8 x10E3/uL (0.1-0.9); ABS Neutophils 5.2 x10E3/uL (1.4-7.0); Abs CD4 Helper 684 /uL (359-1519); Abs CD8 Suppres 724 /uL (109-897); CD4/CD8 Ratio 0.94 (0.92-3.72); Eosinophils 2 % (Not Estab.); HCT 46.9 % (37.5-51.0); HGB 16.1 g/dL (13.0-17.7); HIV-1 RNA PCR QUANT 2 LC550285 <20 copies/mL (.); Immature Grans 0 % (Not Estab.); Lymphocytes 25 % (Not Estab.); MCH 34.2 pg (26.6-33.0); MCHC 34.3 g/dL (31.5-35.7); MCV 100 fL (79-97); Monocytes 9 % (Not Estab.); Neutrophils 63 % (Not Estab.); Platelets 340 x10E3/uL (150-450); RBC 4.71 x10E6/uL (4.14-5.80); RDW 14.2 % (11.6-15.4); WBC 8.1 x10E3/uL (3.4-10.8)
== END ==
LOC: M SFHCPLAZ 10:58
PROVIDERS: ATTEND Internal Medicine Infectious Disease
DX: B20 Human immunodeficiency virus [HIV] disease (principal); N18.3 Chronic kidney disease, stage 3 (moderate); Z13.220 Encounter for screening for lipoid disorders

== ENCOUNTER → 2020-07-03 | Outpatient (REF) | payer BC ==
[~2020-07-03] MED LIST changes: +CYCL-707 PO; -CYCL10TA PO
[2020-07-03 14:50] LABS: ALBUMIN 3.9 GM/DL (3.2-5.2); BILIRUBIN,TOTAL 0.5 MG/DL (0.2-1.0); CALCIUM LEVEL 9.3 MG/DL (8.5-10.1); CHOLESTEROL RISK RATIO 4.208 (<5); CREATININE FOR GFR 1.38 MG/DL (0.70-1.30); FREE T4 0.99 NG/DL (0.76-1.46); GLOMERULAR FILTRATION RATE 57.6 (>56); POTASSIUM SERUM 4.9 MEQ/L (3.5-5.1); THYROID STIMULATING HORMONE 1.51 uIU/ML (0.358-3.740); TOTAL PROTEIN 7.9 GM/DL (6.4-8.2)
[2020-07-05 01:07] LABS: % CD8 Pos Lymph 32.9 % (12.0-35.5); %CD4 Pos Lymphs 39.7 % (30.8-58.5); ABS Basophils 0.1 x10E3/uL (0.0-0.2); ABS Eosinophils 0.1 x10E3/uL (0.0-0.4); ABS Lymphs 2.2 x10E3/uL (0.7-3.1); ABS Monocytes 0.8 x10E3/uL (0.1-0.9); ABS Neutophils 4.4 x10E3/uL (1.4-7.0); Abs CD4 Helper 873 /uL (359-1519); Abs CD8 Suppres 724 /uL (109-897); CD4/CD8 Ratio 1.21 (0.92-3.72); Eosinophils 2 % (Not Estab.); HCT 47.6 % (37.5-51.0); HGB 16.7 g/dL (13.0-17.7); HIV-1 RNA PCR QUANT 2 LC550285 <20 copies/mL (.); Imm ABS Grans 0.1 x10E3/uL (0.0-0.1); Immature Grans 1 % (Not Estab.); Lymphocytes 29 % (Not Estab.); MCH 34.6 pg (26.6-33.0); MCHC 35.1 g/dL (31.5-35.7); MCV 99 fL (79-97); Monocytes 11 % (Not Estab.); Neutrophils 56 % (Not Estab.); Platelets 361 x10E3/uL (150-450); RBC 4.83 x10E6/uL (4.14-5.80); RDW 13.5 % (11.6-15.4); TESTOSTERONE FREE (DIRECT) 12.2 pg/mL (7.2-24.0); WBC 7.6 x10E3/uL (3.4-10.8)
== END ==
LOC: M SFHCPLAZ 10:17
PROVIDERS: ATTEND Internal Medicine Infectious Disease
DX: B20 Human immunodeficiency virus [HIV] disease (principal); E78.5 Hyperlipidemia, unspecified; N52.9 Male erectile dysfunction, unspecified

== ENCOUNTER → 2020-07-27 | Outpatient (CLI) | payer BC ==
--- NOTE | 2020-07-27 12:15 | REP ---
INDICATION: CERVICAL PAIN W/ DDD. COMPARISON: Prior MRI study of the cervical spine is from August 31, 2018.. TECHNIQUE: Sagittal and axial T1 and T2-weighted scans are acquired in the usual fashion with and without fat saturation. Sequences include spin echo, turbo spin-echo, and STIR imaging sequences. FINDINGS: There is mild straightening. No bony destructive lesion is seen. Cortical and medullary bone signal intensity are normal. There are some mild reactive marrow changes along with osteophyte formation at the C5-6 disc level. No fracture or collapse is seen. Cervical cord is normal in course, caliber and signal intensity on T1 and T2 weighted scans. Craniocervical junction is unremarkable. Axial and sagittal images at C2-3 show no abnormality. At C3-C4, there is no evidence of neural foraminal narrowing or central canal stenosis. At C4-C5, there is minimal central disc bulging which appears unchanged. No other finding. At C5-C6, there is degenerative disc narrowing. There is a large disc osteophyte complex along the left posterior and left foraminal margin of the disc at C5-6 producing spinal cord and nerve root compression. This is larger and the effacement of the thecal sac and the ventral margin of the cord is more prominent than it was on the August 31, 2018 prior study. CSF signal is effaced from the thecal sac at this level. The remainder of the disc bulges diffusely. There is mild right-sided uncovertebral spurring as well. Ligamentum flavum hypertrophy contributes somewhat to the thecal sac compression from a dorsal lateral aspect. At C6-C7, there is also left posterior disc protrusion with uncovertebral spurring. This effaces the left ventral margin of the thecal sac and flattens the left ventral margin of the cord. There is left-sided foraminal narrowing from uncovertebral spurring mild in degree. There is mild right-sided uncovertebral spurring. There is some ligamentum flavum hypertrophy and mild central canal stenosis is present at C6-7. The midline dimension in of the thecal sac in the anteroposterior plane at C5-6 and C6-7 is 6 mm. At C7-T1, there is no significant abnormality. IMPRESSION: Degenerative spondylosis changes. There is moderate thecal sac and cord compression at C5-6 where there is a left posterior disc protrusion with osteophyte formation. This has progressed since the 2018 study at this level. Changes at C6-7 are stable. <Electronically signed by Orville Culp > 07/27/20 [id number]
== END ==
LOC: M PLARAD 10:14
PROVIDERS: ATTEND Internal Medicine Infectious Disease
DX: M54.2 Cervicalgia (principal)

== ENCOUNTER → 2021-02-25 | Outpatient (REF) | payer BC ==
[2021-02-25 14:38] LABS: ALBUMIN 3.4 GM/DL (3.2-5.2); ALT/SGPT 31 U/L (12-78); BILIRUBIN,TOTAL 0.3 MG/DL (0.2-1.0); BLOOD UREA NITROGEN 15 MG/DL (7-18); CALCIUM LEVEL 9.1 MG/DL (8.5-10.1); CARBON DIOXIDE LEVEL 25 MEQ/L (21-32); CHLORIDE LEVEL 106 MEQ/L (98-107); CHOLESTEROL LEVEL 116 MG/DL (<200); CHOLESTEROL RISK RATIO 2.974 (<5); CREATININE FOR GFR 1.27 MG/DL (0.70-1.30); GLOMERULAR FILTRATION RATE > 60.0 (>56); GLUCOSE, FASTING 88 MG/DL (70-100); HDL CHOLESTEROL 39 MG/DL (>40); LDL CHOLESTEROL 45 MG/DL (<100); NON-HDL-C 77 MG/DL; POTASSIUM SERUM 4.8 MEQ/L (3.5-5.1); SODIUM LEVEL 139 MEQ/L (136-145); TOTAL PROTEIN 7.3 GM/DL (6.4-8.2); TRIGLYCERIDES LEVEL 161 MG/DL (<150)
[2021-02-25 15:45] LABS: HEMOGLOBIN A1c 5.2 %
[2021-02-27 12:08] LABS: % CD8 Pos Lymph 33.8 % (12.0-35.5); %CD4 Pos Lymphs 38.8 % (30.8-58.5); ABS Eosinophils 0.1 x10E3/uL (0.0-0.4); ABS Lymphs 1.5 x10E3/uL (0.7-3.1); ABS Monocytes 0.6 x10E3/uL (0.1-0.9); ABS Neutophils 6.2 x10E3/uL (1.4-7.0); Abs CD4 Helper 582 /uL (359-1519); Abs CD8 Suppres 507 /uL (109-897); CD4/CD8 Ratio 1.15 (0.92-3.72); Eosinophils 1 % (Not Estab.); HCT 44.1 % (37.5-51.0); HGB 15.2 g/dL (13.0-17.7); HIV-1 RNA PCR QUANT 2 LC550285 60 copies/mL (.); HIV-1 RNA PCR QUANT 3 LC550285 1.778 (.); Immature Grans 1 % (Not Estab.); Lymphocytes 18 % (Not Estab.); MCH 33.6 pg (26.6-33.0); MCHC 34.5 g/dL (31.5-35.7); MCV 98 fL (79-97); Monocytes 7 % (Not Estab.); Neutrophils 72 % (Not Estab.); Platelets 363 x10E3/uL (150-450); RBC 4.52 x10E6/uL (4.14-5.80); RDW 13.6 % (11.6-15.4); WBC 8.5 x10E3/uL (3.4-10.8)
== END ==
LOC: M SFHCPLAZ 09:22
PROVIDERS: ATTEND Internal Medicine Infectious Disease
DX: B20 Human immunodeficiency virus [HIV] disease (principal); E78.5 Hyperlipidemia, unspecified

== ENCOUNTER → 2021-10-11 | Outpatient (REF) | payer BC | LOC: M SFHCPLAZ 17:21 | PROVIDERS: ATTEND Physician Assistant | DX: Z11.52 Encounter for screening for COVID-19 (principal); R05.9 Cough, unspecified ==

== ENCOUNTER → 2021-10-24 | Outpatient (CLI) | payer BC ==
[2021-10-24 17:27] LABS: ALBUMIN 3.7 GM/DL (3.2-5.2); BILIRUBIN,TOTAL 0.4 MG/DL (0.2-1.0); CALCIUM LEVEL 8.9 MG/DL (8.5-10.1); CHOLESTEROL RISK RATIO 5.108 (<5); CREATININE FOR GFR 1.58 MG/DL (0.70-1.30); GLOMERULAR FILTRATION RATE 49.1 (>56); POTASSIUM SERUM 4.4 MEQ/L (3.5-5.1); TOTAL PROTEIN 7.2 GM/DL (6.4-8.2)
== END ==
LOC: M PLALAB 14:24
PROVIDERS: ATTEND Internal Medicine Infectious Disease
DX: B20 Human immunodeficiency virus [HIV] disease (principal); E78.5 Hyperlipidemia, unspecified

== ENCOUNTER 2022-03-07 16:27 | Inpatient (IN) | payer BC ==
[~2022-03-07] VITALS: Ht 172.7 cm; Wt 75.0 kg
[2022-03-07] MEDS ORDERED: DOLU1TAB PO (16:58)
[2022-03-07 17:18] LABS: HEMATOCRIT 46.2 % (42.0-52.0); HEMOGLOBIN 16.8 g/dl (13.5-17.5); MEAN CORPUSCULAR HEMOGLOBIN 34.9 pg (27.0-33.0); MEAN CORPUSCULAR HGB CONC 36.4 g/dl (32.0-36.5); MEAN CORPUSCULAR VOLUME 95.9 fl (80.0-96.0); PLATELET COUNT, AUTOMATED 334 10^3/uL (150-450); RED BLOOD COUNT 4.82 10^6/uL (4.30-6.10); WHITE BLOOD COUNT 9.8 10^3/uL (4.0-10.0)
[2022-03-07 17:57] LABS: AMPHETAMINES LEVEL URINE NEGATIVE (NEGATIVE); BARBITURATES URINE NEGATIVE (NEGATIVE); BENZODIAZEPINES URINE NEGATIVE (NEGATIVE); CANNABINOIDS URINE NEGATIVE (NEGATIVE); COCAINE METABOLITE URINE NEGATIVE (NEGATIVE); METHADONE URINE NEGATIVE (NEGATIVE); OPIATES URINE NEGATIVE (NEGATIVE); PHENCYCLIDINE URINE NEGATIVE (NEGATIVE)
[2022-03-07 18:00] LABS: ACETAMINOPHEN LEVEL < 2.0 UG/ML (10.0-30.0); ALBUMIN 3.9 GM/DL (3.2-5.2); ALT/SGPT 29 U/L (12-78); BILIRUBIN,DIRECT < 0.1 MG/DL (0.0-0.2); BILIRUBIN,TOTAL 0.5 MG/DL (0.2-1.0); BLOOD UREA NITROGEN 11 MG/DL (7-18); CALCIUM LEVEL 9.2 MG/DL (8.5-10.1); CARBON DIOXIDE LEVEL 19 MEQ/L (21-32); CHLORIDE LEVEL 101 MEQ/L (98-107); CREATININE FOR GFR 1.27 MG/DL (0.70-1.30); ETHYL ALCOHOL (ETHANOL) 0.143 % (0.000-0.010); GLOMERULAR FILTRATION RATE > 60.0 (>56); GLUCOSE, FASTING 96 MG/DL (70-100); SALICYLATE LEVEL 5.1 MG/DL (5.0-30.0); SODIUM LEVEL 133 MEQ/L (136-145); TOTAL PROTEIN 7.7 GM/DL (6.4-8.2)
[2022-03-08 01:21] LABS: RSV AMPLIFICATION NEGATIVE (NEGATIVE)
[2022-03-08] MEDS ORDERED: ACETAMINOPHEN TAB 650MG DOSE (2X325MG) PO PRN (01:25)
[2022-03-08] MEDS ORDERED: MOM 30ML SUSPENSION UDC PO PRN (01:25)
[2022-03-08] MEDS ORDERED: LORazepam 2 MG TAB PO PRN (01:25)
[2022-03-08] MEDS ORDERED: MAALOX 30 ML SUSP *UDC PO PRN (01:25)
[2022-03-08] MEDS ORDERED: traZODone 50 MG TAB PO PRN (01:25)
[2022-03-08 02:04] VITALS: BP 140/96
[2022-03-08] MEDS: THIAMINE 100 MG TAB PO SCH ×2 (02:17→08:26)
[2022-03-08 02:22] VITALS: BP 140/96
[2022-03-08] MEDS ORDERED: HOME MED LIST COMPLETE! XX SCH (08:00)
[2022-03-08] MEDS ORDERED: MULTIVITAMINS/MINERALS THERAP 1 TAB PO SCH (09:00)
[2022-03-08] MEDS ORDERED: FOLIC ACID 1 MG TAB PO SCH (09:00)
[2022-03-08 09:54] VITALS: BP 137/94
== END 2022-03-08 15:22 | disposition home or self-care (01) | DRG 755 ==
LOC: M ED 16:27 → M ED INP 03-08 01:22 → M PSY 03-08 02:06
PROVIDERS: ADMIT Psychiatry & Neurology Psychiatry; ATTEND Psychiatry & Neurology Psychiatry
DX: F43.10 Post-traumatic stress disorder, unspecified (principal); F41.1 Generalized anxiety disorder; R45.851 Suicidal ideations; Z63.0 Problems in relationship with spouse or partner; B20 Human immunodeficiency virus [HIV] disease; F17.200 Nicotine dependence, unspecified, uncomplicated; Z20.822 Contact with and (suspected) exposure to COVID-19; Z79.899 Other long term (current) drug therapy

== ENCOUNTER → 2022-04-24 | Outpatient (REF) | payer BC ==
[~2022-04-24] MED LIST changes: +DOLU1TAB PO
== END ==
LOC: M SFHCPLAZ 13:07
PROVIDERS: ATTEND Internal Medicine Infectious Disease
DX: R19.7 Diarrhea, unspecified (principal)

== ENCOUNTER → 2022-04-24 | Outpatient (CLI) | payer BC ==
[2022-04-24 18:57] LABS: ALBUMIN 3.7 GM/DL (3.2-5.2); ALT/SGPT 27 U/L (12-78); BILIRUBIN,TOTAL 0.4 MG/DL (0.2-1.0); BLOOD UREA NITROGEN 15 MG/DL (7-18); CALCIUM LEVEL 9.3 MG/DL (8.5-10.1); CARBON DIOXIDE LEVEL 23 MEQ/L (21-32); CHLORIDE LEVEL 102 MEQ/L (98-107); CHOLESTEROL LEVEL 173 MG/DL (<200); CHOLESTEROL RISK RATIO 2.932 (<5); CREATININE FOR GFR 1.29 MG/DL (0.70-1.30); FREE T4 1.08 NG/DL (0.76-1.46); GLOMERULAR FILTRATION RATE > 60.0 (>56); GLUCOSE, FASTING 86 MG/DL (70-100); HDL CHOLESTEROL 59 MG/DL (>40); LDL CHOLESTEROL 86 MG/DL (<100); NON-HDL-C 114 MG/DL; POTASSIUM SERUM 4.4 MEQ/L (3.5-5.1); SODIUM LEVEL 133 MEQ/L (136-145); TOTAL PROTEIN 7.5 GM/DL (6.4-8.2); TRIGLYCERIDES LEVEL 138 MG/DL (<150)
[2022-04-28 11:07] LABS: % CD8 Pos Lymph 32.7 % (12.0-35.5); %CD4 Pos Lymphs 43.3 % (30.8-58.5); ABS Eosinophils 0.1 x10E3/uL (0.0-0.4); ABS Lymphs 1.8 x10E3/uL (0.7-3.1); ABS Monocytes 0.7 x10E3/uL (0.1-0.9); ABS Neutophils 6.6 x10E3/uL (1.4-7.0); Abs CD4 Helper 779 /uL (359-1519); Abs CD8 Suppres 589 /uL (109-897); CD4/CD8 Ratio 1.32 (0.92-3.72); Eosinophils 1 % (Not Estab.); HCT 48.6 % (37.5-51.0); HGB 17.1 g/dL (13.0-17.7); HIV-1 RNA PCR QUANT 2 LC550285 80 copies/mL (.); HIV-1 RNA PCR QUANT 3 LC550285 1.903 (.); Immature Grans 0 % (Not Estab.); Lymphocytes 20 % (Not Estab.); MCH 35.1 pg (26.6-33.0); MCHC 35.2 g/dL (31.5-35.7); MCV 100 fL (79-97); Monocytes 7 % (Not Estab.); Neutrophils 72 % (Not Estab.); Platelets 373 x10E3/uL (150-450); RBC 4.87 x10E6/uL (4.14-5.80); TESTOSTERONE FREE (DIRECT) 10.3 pg/mL (7.2-24.0); WBC 9.2 x10E3/uL (3.4-10.8)
== END ==
LOC: M RAD 13:57
PROVIDERS: ATTEND Internal Medicine Infectious Disease
DX: R05.3 Chronic cough (principal); B20 Human immunodeficiency virus [HIV] disease; R63.4 Abnormal weight loss; Z12.5 Encounter for screening for malignant neoplasm of prostate; N52.9 Male erectile dysfunction, unspecified; I21.3 ST elevation (STEMI) myocardial infarction of unspecified site

== ENCOUNTER → 2022-06-16 | Outpatient (CLI) | payer BC | LOC: M RAD 09:21 | PROVIDERS: ATTEND Internal Medicine Infectious Disease | DX: Z72.0 Tobacco use (principal) ==

== ENCOUNTER → 2022-06-27 | Outpatient (CLI) | payer BC | LOC: M PLALAB 13:14 | PROVIDERS: ATTEND Psychiatry & Neurology Psychiatry | DX: Z51.81 Encounter for therapeutic drug level monitoring (principal); Z79.899 Other long term (current) drug therapy ==

== ENCOUNTER → 2022-08-19 | Outpatient (CLI) | payer BC ==
[2022-08-19 15:38] LABS: ALBUMIN 3.5 G/DL (3.2-5.2)
[2022-08-19 15:43] LABS: CALCIUM LEVEL 8.8 MG/DL (8.5-10.1)
[2022-08-19 15:44] LABS: BILIRUBIN,TOTAL 0.3 MG/DL (0.3-1.2); TOTAL PROTEIN 7.1 G/DL (5.7-8.2)
[2022-08-19 15:45] LABS: CREATININE FOR GFR 1.59 MG/DL (0.70-1.30); GLOMERULAR FILTRATION RATE 48.5 (>56)
[2022-08-19 15:47] LABS: POTASSIUM SERUM 4.6 MMOL/L (3.5-5.1)
[2022-08-22 03:12] LABS: % CD8 Pos Lymph 31.1 % (12.0-35.5); %CD4 Pos Lymphs 42.6 % (30.8-58.5); ABS Basophils 0.1 x10E3/uL (0.0-0.2); ABS Eosinophils 0.1 x10E3/uL (0.0-0.4); ABS Lymphs 1.7 x10E3/uL (0.7-3.1); ABS Monocytes 0.6 x10E3/uL (0.1-0.9); ABS Neutophils 5.3 x10E3/uL (1.4-7.0); Abs CD4 Helper 724 /uL (359-1519); Abs CD8 Suppres 529 /uL (109-897); CD4/CD8 Ratio 1.37 (0.92-3.72); Eosinophils 1 % (Not Estab.); HCT 47.3 % (37.5-51.0); HGB 16.6 g/dL (13.0-17.7); HIV-1 RNA PCR QUANT 2 LC550285 <20 copies/mL (.); Immature Grans 0 % (Not Estab.); Lymphocytes 22 % (Not Estab.); MCH 35.5 pg (26.6-33.0); MCHC 35.1 g/dL (31.5-35.7); MCV 101 fL (79-97); Monocytes 8 % (Not Estab.); Neutrophils 68 % (Not Estab.); Platelets 398 x10E3/uL (150-450); RBC 4.67 x10E6/uL (4.14-5.80); RDW 13.8 % (11.6-15.4); WBC 7.8 x10E3/uL (3.4-10.8)
== END ==
LOC: M LAB 14:42
PROVIDERS: ATTEND Internal Medicine Infectious Disease
DX: B20 Human immunodeficiency virus [HIV] disease (principal); R63.4 Abnormal weight loss

== ENCOUNTER → 2022-10-13 | Outpatient (REF) | LOC: M LAB 08:33 ==